=== PATIENT | female | born 1985 | race Caucasian/White ===

== ENCOUNTER 2017-02-22 17:37 | Emergency (ER) | payer OTHER ==
[~2017-02-22] VITALS: Ht 172.7 cm; Wt 143.7 kg
[2017-02-22 17:58] VITALS: TEMP 37; Ht 172.7 cm; Wt 143.7 kg
[2017-02-22] MEDS ORDERED: LEVO75TA PO (19:29)
--- NOTE | 2017-02-22 19:44 | EMERGENCY ROOM VISIT NOTE ---
History Report prepared by Rommel: Tlou Abrams Under the Supervision of: Dr. Ever Granado M.D. First contact with patient: 19:27 Chief Complaint: SWELLING TO EXTREMITY Stated Complaint: FEET ARE SWELLED AND RASHED- PHYSICIAN REFERRED History of Present Illness The patient is a 31 year old female who presents to the Emergency Room with complaints of persistent bilateral leg and feet swelling that started earlier today. She adds that there are red dots on her feet. The patient says that she was just sitting all day at [employer], but she was swimming in [place] yesterday. The patient says that she has been feeling very hot and nauseous all day, and when she walks around, it feels like water is "swooshing around" on her feet. The patient adds that for the past 3 days, she has been vomiting after eating. She says that she feels full and after she vomits, she feels fine. The patient denies any fevers, shortness of breath, worsening headaches, abdominal pain, or abnormal vaginal discharge or bleeding. The patient denies any chance of or any known tick bites. Source of History: patient Onset: Earlier today Position: leg (bilateral), foot (bilateral) Quality: other (swelling) Timing: other (persistent) Associated Symptoms: + nausea, + vomiting, No fevers, No headache (worsening ), No SOB, No abdominal pain Note: Associated symptoms: Red dots on feet. Hot. Feels like water "swooshing around" on feet. Denies abnormal vaginal discharge or bleeding. Review of Systems See HPI for pertinent positives & negatives. A total of 10 systems reviewed and were otherwise negative. Past Medical & Surgical Medical Problems: (1) Eye cancer (2) Migraine Surgical Problems: (1) History of tonsillectomy Old medical records were reviewed. Nurse's notes were reviewed and I agree with. Family History Diabetes mellitus FH: heart disease FHx: cancer FHx: gallbladder disease Hypertension Kidney disease Social History Smoking Status: Never Smoker Alcohol Use: occasionally Marital Status: Housing Status: lives with family Occupation Status: employed Current/Historical Medications Scheduled Levothyroxine Sodium (Synthroid), 75 MCG PO DAILY Allergies Coded Allergies: No Known Allergies (Unverified , 02/22/17) Physical Exam Vital Signs Date Time Temp Pulse Resp B/P (MAP) Pulse Ox O2 Delivery O2 Flow Rate FiO2 02/22/17 21:52 93 20 155/95 98 02/22/17 21:15 103 20 149/93 98 Room Air 02/22/17 17:58 37.0 103 18 156/91 100 Room Air Physical Exam General: Well developed well nourished non ill-appearing young female in no acute distress, breathing comfortably on room air. Normal speech HEENT: Prosthetic right eye and surgical changes. Left eye has normal movement. Oropharynx is pink with moist mucous membranes. No swelling of the mouth lips or tongue. Neck: Supple with a midline trachea. No meningeal signs or stiffness, no JVD or bruits. No Stridor. Chest: Clear to auscultation bilaterally. No wheezes or rhonchi. No increased work of breathing. Heart: regular rate and rhythm. Abdomen: Soft nontender, nondistended without rebound guarding or rigidity. Extremities: Mild redness and possible swelling of shins diffusely. No definite cellulitis or crepitus. Small petechial-looking rashes on feet only. There are only a few spots here and there. Spine/Back. Non tender to palpation. No CVA tenderness Skin: Good turgor without rashes signs a small rash on the feet. Neurologic exam: Cranial nerves two through 12 are intact. Motor and sensation are intact and symmetrical throughout. Medical Decision & Procedures ER Provider Diagnostic Interpretation: X-ray results as stated below per interpretation by me and the radiologist: CHEST ONE VIEW PORTABLE CLINICAL HISTORY: CHEST PAIN chest pain COMPARISON STUDY: No previous studies for comparison. FINDINGS: The bones soft tissues and hemidiaphragms are normal. The cardiomediastinal silhouette is normal. The lungs are clear. The pulmonary vasculature is normal. IMPRESSION: Negative chest. The above report was generated using voice recognition software. It may contain grammatical, syntax or spelling errors. Electronically signed by: James Martin M.D. 02/22/2017 8:40 PM Dictated Date/Time: 02/22/2017 8:39 PM Laboratory Results 02/22/17 20:15 Red Blood Count 4.48, Mean Corpuscular Volume 89.5, Mean Corpuscular Hemoglobin 29.7, Mean Corpuscular Hemoglobin Concent 33.2, Mean Platelet Volume 9.8, Neutrophils (%) (Auto) 54.9, Lymphocytes (%) (Auto) 35.5, Monocytes (%) (Auto) 6.6, Eosinophils (%) (Auto) 2.6, Basophils (%) (Auto) 0.2, Neutrophils # (Auto) 5.35, Lymphocytes # (Auto) 3.45, Monocytes # (Auto) 0.64, Eosinophils # (Auto) 0.25, Basophils # (Auto) 0.02 02/22/17 20:15 Test 02/22/17 20:15 02/22/17 21:10 White Blood Count 9.73 K/uL (4.8-10.8) Red Blood Count 4.48 M/uL (4.2-5.4) Hemoglobin 13.3 g/dL (12.0-16.0) Hematocrit 40.1 % (37-47) Mean Corpuscular Volume 89.5 fL (80-100) Mean Corpuscular Hemoglobin 29.7 pg (25-34) Mean Corpuscular Hemoglobin Concent 33.2 g/dl (32-36) Platelet Count 287 K/uL (130-400) Mean Platelet Volume 9.8 fL (7.4-10.4) Neutrophils (%) (Auto) 54.9 % Lymphocytes (%) (Auto) 35.5 % Monocytes (%) (Auto) 6.6 % Eosinophils (%) (Auto) 2.6 % Basophils (%) (Auto) 0.2 % Neutrophils # (Auto) 5.35 K/uL (1.4-6.5) Lymphocytes # (Auto) 3.45 K/uL (1.2-3.4) Monocytes # (Auto) 0.64 K/uL (0.11-0.59) Eosinophils # (Auto) 0.25 K/uL (0-0.5) Basophils # (Auto) 0.02 K/uL (0-0.2) RDW Standard Deviation 46.6 fL (36.4-46.3) RDW Coefficient of Variation 14.2 % (11.5-14.5) Immature Granulocyte % (Auto) 0.2 % Immature Granulocyte # (Auto) 0.02 K/uL (0.00-0.02) Anion Gap 7.0 mmol/L (3-11) Est Creatinine Clear Calc Drug Dose 163.1 ml/min Estimated GFR () 120.9 Estimated GFR (Non- 104.3 BUN/Creatinine Ratio 21.0 (10-20) Calcium Level 9.2 mg/dl (8.5-10.1) Total Bilirubin 0.2 mg/dl (0.2-1) Direct Bilirubin 0.1 mg/dl (0-0.2) Aspartate Amino Transf (AST/SGOT) 24 U/L (15-37) Alanine Aminotransferase (ALT/SGPT) 45 U/L (12-78) Alkaline Phosphatase 91 U/L (45-117) Total Creatine Kinase 105 U/L (26-192) Creatine Kinase MB 0.6 ng/ml (0.5-3.6) Creatine Kinase MB Ratio 0.6 (0-3.0) Troponin I < 0.015 ng/ml (0-0.045) Total Protein 6.9 gm/dl (6.4-8.2) Albumin 3.4 gm/dl (3.4-5.0) Lipase 243 U/L (73-393) Thyroid Stimulating Hormone (TSH) 1.870 uIu/ml (0.300-4.500) Human Chorionic Gonadotropin, Qual NEG (NEG) Lyme Disease IgG Antibody NEG (NEG) Lyme Disease IgM Antibody NEG (NEG) Urine Color YELLOW Urine Appearance CLEAR (CLEAR) Urine pH 5.0 (4.5-7.5) Urine Specific [place] 1.026 (1.000-1.030) Urine Protein NEG (NEG) Urine Glucose (UA) NEG (NEG) Urine Ketones NEG (NEG) Urine Occult Blood NEG (NEG) Urine Nitrite NEG (NEG) Urine Bilirubin NEG (NEG) Urine Urobilinogen NEG (NEG) Urine Leukocyte Esterase NEG (NEG) Laboratory studies as stated above per my review. ECG Indication: vomiting Rate (beats per minute): 97 Rhythm: normal sinus Findings: no acute ischemic change, no ectopy Comparison ECG Date: no prior available ED Course 1930: Past medical records reviewed. The patient was evaluated in room B10, and a complete history and physical examination were performed. 2033: I reevaluated the patient and she is resting comfortably. 2114: I reevaluated the patient and she is resting comfortably. 2141: Upon reevaluation, the patient is resting comfortably. I discussed the results and treatment plan with her. She verbalized agreement of the treatment plan. The patient was discharged home. Medical Decision Differentials include but are not limited to: hematologic abnormality, infection , trauma, electrolyte or metabolic abnormality. This patient comes in as described above. She was placed in room B 10. She has been having swelling of her legs. She was out in the sun on the leg. She has diffuse small spots of a rash on her feet only which could be a TIA however she has none anywhere else on her body .she is nontoxic and afebrile. Multiple blood testing was obtained. She has no white count or fever to suggest infection. She has no acute electrolyte or metabolic abnormalities. She has normal platelet function. She has normal cardiac workup. She feels good and would like to go home. I think this most likely may be more mechanical issue from being outside. There is no evidence of any cardiac, renal, or other pathology however I told her to keep her legs elevated follow-up with her regular doctor. Return if: fever, increasing pain or swelling, worsening of symptoms, any new problems or concerns. She says she feels a lot better than she did yesterday as well. She is happy the plan and discharged to home. Medication Reconcilliation Current Medication List: was personally reviewed by me Blood Pressure Screening Patient's blood pressure: Elevated blood pressure Blood pressure disposition: Elevated BP felt to be situational Impression Primary Impression: Lower extremity edema Additional Impression: Rash Scribe Attestation The scribe's documentation has been prepared under my direction and personally reviewed by me in its entirety. I confirm that the note above accurately reflects all work, treatment, procedures, and medical decision making performed by me. Departure Information Dispostion Home / Self-Care Referrals Momo Calvo PA-C (PCP) Patient Instructions My [facility] Additional Instructions Rest. Elevate your legs Return if: Increasing pain or swelling, fever or chills, chest pain, worsening symptoms, any new problems or concerns Follow-up with your doctor in the next couple days for recheck Problem Qualifiers
[2017-02-22 20:33] LABS: BASO % 0.2 %; BASO ABS # 0.02 K/uL (0-0.2); COMPLETE YES; EOS % 2.6 %; HEMATOCRIT 40.1 % (37-47); IG% 0.2 %; LYMPH % 35.5 %; LYMPH ABS # 3.45 K/uL (1.2-3.4); MEAN CELL VOLUME 89.5 fL (80-100); MEAN CORPUSCULAR HEMOGLOBIN 29.7 pg (25-34); MEAN CORPUSCULAR HGB CONC 33.2 g/dl (32-36); MEAN PLATELET VOLUME 9.8 fL (7.4-10.4); MONO % 6.6 %; NEUT % 54.9 %; PLATELET COUNT 287 K/uL (130-400); RED BLOOD COUNT 4.48 M/uL (4.2-5.4); WHITE BLOOD COUNT 9.73 K/uL (4.8-10.8)
--- NOTE | 2017-02-22 20:41 | DIAGNOSTIC IMAGING REPORT ---
CHEST ONE VIEW PORTABLE CLINICAL HISTORY: CHEST PAIN chest pain COMPARISON STUDY: No previous studies for comparison. FINDINGS: The bones soft tissues and hemidiaphragms are normal. The cardiomediastinal silhouette is normal. The lungs are clear. The pulmonary vasculature is normal. IMPRESSION: Negative chest. The above report was generated using voice recognition software. It may contain grammatical, syntax or spelling errors. Electronically signed by: James Martin M.D. 02/22/2017 8:40 PM Dictated Date/Time: 02/22/2017 8:39 PM
[2017-02-22 20:43] LABS: ALT/SGPT 45 U/L (12-78); BLOOD UREA NITROGEN 16 mg/dl (7-18); CALCIUM 9.2 mg/dl (8.5-10.1); CARBON DIOXIDE 25 mmol/L (21-32); CHLORIDE 111 mmol/L (98-107); CREATININE 0.77 mg/dl (0.60-1.20); GLUCOSE 122 mg/dl (70-99); POTASSIUM 3.8 mmol/L (3.5-5.1); SODIUM 143 mmol/L (136-145)
[2017-02-22 20:54] LABS: ALKALINE PHOSPHATASE 91 U/L (45-117); AST/SGOT 24 U/L (15-37); CKMB/CK RATIO 0.6 (0-3.0)
[2017-02-22 21:17] LABS: PREG INTERNAL NEGATIVE QC NEG CLEAR BACKGROUND; PREG INTERNAL POSITIVE QC POS CONTROL LINE
[2017-02-22 21:29] LABS: URINE APPEARANCE CLEAR (CLEAR); URINE BILIRUBIN NEG (NEG); URINE COLOR YELLOW; URINE NITRITE NEG (NEG); URINE SPECIFIC GRAVITY 1.026 (1.000-1.030); UROBILINOGEN NEG (NEG)
[2017-02-22 21:42] LABS: MANUAL MICROSCOPIC REQUIRED? NO; REVIEW REQ? NO
[2017-02-22 21:46] LABS: LYME DISEASE AB IGG NEG (NEG); LYME DISEASE AB IGM NEG (NEG)
[2017-02-22 21:52] VITALS: BP 155/95; PULSE 93; O2SAT 98
== END 2017-02-22 21:50 | disposition home or self-care (01) ==
LOC: MERGE 17:42 → C.EDB 17:42
DX: R60.0 Localized edema (principal); R21 Rash and other nonspecific skin eruption; Z85.840 Personal history of malignant neoplasm of eye; G43.909 Migraine, unspecified, not intractable, without status migrainosus; Z83.3 Family history of diabetes mellitus; Z82.49 Family history of ischemic heart disease and other diseases of the circulatory system; Z80.9 Family history of malignant neoplasm, unspecified; Z83.79 Family history of other diseases of the digestive system; Z84.1 Family history of disorders of kidney and ureter; Z79.899 Other long term (current) drug therapy

== ENCOUNTER 2017-08-24 10:17 | Emergency (ER) | payer OTHER ==
[~2017-08-24 10:17] MED LIST: LEVO75TA PO
[2017-08-24 10:41] VITALS: TEMP 36.9; Ht 170.2 cm
[2017-08-24 11:14] VITALS: O2SAT 100
[2017-08-24] MEDS ORDERED: CHOL1TAB46 PO (11:29)
[2017-08-24] MEDS ORDERED: GLC/500 PO (11:29)
[2017-08-24] MEDS ORDERED: DULA1INJ INJ (11:29)
[2017-08-24] MEDS ORDERED: LEVO88TA3 PO (11:29)
[2017-08-24] MEDS ORDERED: CYNI1000 INJ (11:29)
--- NOTE | 2017-08-24 12:02 | EMERGENCY ROOM VISIT NOTE ---
History Report prepared by Rommel: Tolu Abrams Under the Supervision of: Dr. Nba Tran M.D. First contact with patient: 11:10 Chief Complaint: SYNCOPE Stated Complaint: DIZZINESS, PASSED OUT MULTIPLE TIMES History of Present Illness The patient is a 32 year old white female with a past medical history of migraines, PCOS, thyroid disorder, retinoblastoma, right eye removal who presents to the ED with a cc of syncopal episodes beginning this week. Positive headache, loss of consciousness, lightheadedness, nausea, heart racing, feeling hot. Negative abdominal pain, chest pain, shaking, tongue biting, incontinence, bowel movement changes. She notes that she is chronically lightheaded with standing, but when going from sitting to standing this morning, she passed out. The patient states that she passed out last night when going from sitting to standing as well. The patient notes that she has no history of seizures. She adds that she was recently started on Trulicity for prediabetes. She has been on Metformin for a while and is still on it. Source of History: patient Onset: This week Position: other (global) Symptom Intensity: 2 times Quality: other (syncope) Timing: other (episodes) Associated Symptoms: + LOC, + headache, + nausea, No chest pain, No abdominal pain, No urinary symptoms (denies incontinence) Note: Positive lightheadedness, feeling hot, heart racing. Negative tongue bite, shaking. Review of Systems See HPI for pertinent positives and negatives. A total of ten systems were reviewed and were otherwise negative. Past Medical & Surgical Medical Problems: (1) Eye cancer (2) Migraine Surgical Problems: (1) History of tonsillectomy Family History Diabetes mellitus FH: heart disease FHx: cancer FHx: gallbladder disease Hypertension Kidney disease Social History Smoking Status: Never Smoker Alcohol Use: occasionally Marital Status: Housing Status: lives with family Occupation Status: employed Current/Historical Medications Scheduled Cholecalciferol (Vitamin D3), 5,000 UNITS PO DAILY Cyanocobalamin (Cyanocobalamin), 1 DOSE INJ WK Dulaglutide (Trulicity), 1 DOSE INJ WK Levothyroxine Sodium (Levothyroxine Sodium), 88 MCG PO DAILY Metformin Hcl (Glucophage), 500 MG PO DAILY Allergies Coded Allergies: No Known Allergies (Unverified , 08/24/17) Physical Exam Vital Signs Date Time Temp Pulse Resp B/P (MAP) Pulse Ox O2 Delivery O2 Flow Rate FiO2 08/24/17 12:46 91 24 129/78 99 Room Air 08/24/17 12:32 104 08/24/17 11:14 89 20 125/93 100 Room Air 95 141/96 107 142/91 08/24/17 11:14 100 Room Air 08/24/17 11:14 89 20 141/96 100 Room Air 08/24/17 10:41 36.9 87 18 137/90 98 Room Air Physical Exam GENERAL: Awake, alert, well-appearing, NAD HENT: Normocephalic, atraumatic. EYES: Prosthetic right eye. Gross vision intact, right prosthetic eye more sunken but chronic. NECK: Supple. No nuchal rigidity. FROM. RESPIRATORY: CTAB, no rhonchi, wheezing, crackles CARDIAC: RRR, no MRG ABDOMEN: Obese, soft, NTND, BS+ MSK: No chest wall TTP, no LE edema NEURO: CN 2-12 intact, 5/5 upper and lower extremity strength, no dysmetria, no drift, good finger to nose, no sensory deficits. SKIN: No rash or jaundice noted. Medical Decision & Procedures ER Provider Diagnostic Interpretation: Radiology results as stated below per my review and radiologist interpretation: HEAD WITHOUT CONTRAST (CT) CT DOSE: 669.45 mGycm HISTORY: Mental status change EVALUATE ALTERED MENTAL STATUS/WEAKNESS TECHNIQUE: Multiaxial CT images of the head were performed without the use of intravenous contrast. A dose lowering technique was utilized adhering to the principles of ALARA. Comparison: None. Findings: Findings suggesting old posttraumatic change to the right facial and right orbital region. The right globe is atrophy compared to the left. There has been operative screw fixation of the right zygomatic arch. Mastoid air cells are considered clear. The calvarium and skull base are intact. The ventricles and sulci are within normal limits. There is no mass, hematoma, midline shift, or acute infarct. Transaxial image 12 suggests a small focus of increased density in the right paraventricular region. This is felt to represent developing calcification of the basal ganglia. There is no midline shift. Impression: No acute intracranial abnormality. Findings consistent with postoperative and old posttraumatic changes to the right facial region, right orbital region, as well as left parietal calvarial convexity. The above report was generated using voice recognition software. It may contain grammatical, syntax or spelling errors. Electronically signed by: James Martin M.D. 08/24/2017 12:28 PM Dictated Date/Time: 08/24/2017 12:23 PM CHEST ONE VIEW PORTABLE CLINICAL HISTORY: EVALUATE ALTERED MENTAL STATUS/WEAKNESS dyspnea COMPARISON STUDY: 02/22/2017 FINDINGS: The bones soft tissues and hemidiaphragms are normal. The cardiomediastinal silhouette is normal. The lungs are clear. The pulmonary vasculature is normal. IMPRESSION: Negative chest. The above report was generated using voice recognition software. It may contain grammatical, syntax or spelling errors. Electronically signed by: James Martin M.D. 08/24/2017 12:37 PM Dictated Date/Time: 08/24/2017 12:36 PM Laboratory Results 08/24/17 11:10 Red Blood Count 4.86, Mean Corpuscular Volume 88.3, Mean Corpuscular Hemoglobin 29.8, Mean Corpuscular Hemoglobin Concent 33.8, Mean Platelet Volume 9.8, Neutrophils (%) (Auto) 60.5, Lymphocytes (%) (Auto) 30.4, Monocytes (%) (Auto) 7.0, Eosinophils (%) (Auto) 1.7, Basophils (%) (Auto) 0.1, Neutrophils # (Auto) 4.39, Lymphocytes # (Auto) 2.21, Monocytes # (Auto) 0.51, Eosinophils # (Auto) 0.12, Basophils # (Auto) 0.01 08/24/17 11:10 Test 08/24/17 11:10 08/24/17 12:14 White Blood Count 7.26 K/uL (4.8-10.8) Red Blood Count 4.86 M/uL (4.2-5.4) Hemoglobin 14.5 g/dL (12.0-16.0) Hematocrit 42.9 % (37-47) Mean Corpuscular Volume 88.3 fL (80-100) Mean Corpuscular Hemoglobin 29.8 pg (25-34) Mean Corpuscular Hemoglobin Concent 33.8 g/dl (32-36) Platelet Count 309 K/uL (130-400) Mean Platelet Volume 9.8 fL (7.4-10.4) Neutrophils (%) (Auto) 60.5 % Lymphocytes (%) (Auto) 30.4 % Monocytes (%) (Auto) 7.0 % Eosinophils (%) (Auto) 1.7 % Basophils (%) (Auto) 0.1 % Neutrophils # (Auto) 4.39 K/uL (1.4-6.5) Lymphocytes # (Auto) 2.21 K/uL (1.2-3.4) Monocytes # (Auto) 0.51 K/uL (0.11-0.59) Eosinophils # (Auto) 0.12 K/uL (0-0.5) Basophils # (Auto) 0.01 K/uL (0-0.2) RDW Standard Deviation 46.6 fL (36.4-46.3) RDW Coefficient of Variation 14.3 % (11.5-14.5) Immature Granulocyte % (Auto) 0.3 % Immature Granulocyte # (Auto) 0.02 K/uL (0.00-0.02) Prothrombin Time 9.9 SECONDS (9.0-12.0) Prothromb Time International Ratio 0.9 (0.9-1.1) Activated Partial Thromboplast Time 27.3 SECONDS (21.0-31.0) Partial Thromboplastin Ratio 1.1 Anion Gap 6.0 mmol/L (3-11) Estimated GFR () 114.7 Estimated GFR (Non- 98.9 BUN/Creatinine Ratio 15.7 (10-20) Calcium Level 8.9 mg/dl (8.5-10.1) Phosphorus Level 3.3 mg/dl (2.5-4.9) Magnesium Level 2.3 mg/dl (1.8-2.4) Total Bilirubin 0.4 mg/dl (0.2-1) Direct Bilirubin 0.1 mg/dl (0-0.2) Aspartate Amino Transf (AST/SGOT) 22 U/L (15-37) Alanine Aminotransferase (ALT/SGPT) 51 U/L (12-78) Alkaline Phosphatase 98 U/L (45-117) Troponin I < 0.015 ng/ml (0-0.045) Total Protein 7.7 gm/dl (6.4-8.2) Albumin 3.7 gm/dl (3.4-5.0) Thyroid Stimulating Hormone (TSH) 1.710 uIu/ml (0.300-4.500) Urine Color YELLOW Urine Appearance CLEAR (CLEAR) Urine pH 6.0 (4.5-7.5) Urine Specific [place] 1.016 (1.000-1.030) Urine Protein NEG (NEG) Urine Glucose (UA) NEG (NEG) Urine Ketones NEG (NEG) Urine Occult Blood NEG (NEG) Urine Nitrite NEG (NEG) Urine Bilirubin NEG (NEG) Urine Urobilinogen NEG (NEG) Urine Leukocyte Esterase NEG (NEG) Laboratory results reviewed by me Medications Administered Medications (Trade) Dose Ordered Sig/[place]ls[place] Route Start Time Stop Time Status Last Admin Dose Admin Sodium Chloride 1,000 ml @ 999 mls/hr Q1H1M STAT IV 08/24/17 12:05 08/24/17 13:05 DC 08/24/17 12:45 999 MLS/HR Metoclopramide HCl (Reglan Inj) 10 mg NOW STAT IV. 08/24/17 12:05 08/24/17 12:07 DC 08/24/17 12:46 10 MG Diphenhydramine HCl (Benadryl Inj) 25 mg NOW STAT IV 08/24/17 12:05 08/24/17 12:07 DC 08/24/17 12:46 25 MG ECG Per My Interpretation Indication: syncope Rate (beats per minute): 96 Rhythm: normal sinus Findings: T-wave inversion (single in lead 3), other (normal intervals, normal axis, no other sts changes or twi) ED Course 1155: The patient was evaluated in room A10. A complete history and physical exam was performed. 1317: I reevaluated the patient and she is resting comfortably. Discussed results and discharge instructions: she verbalized understanding and agreement. The patient is ready for discharge. Medical Decision The patient is a 32 year old white female with a past medical history of migraines, PCOS, thyroid disorder, retinoblastoma, right eye removal who presents to the ED with a cc of syncopal episodes beginning this week. Positive headache, loss of consciousness, lightheadedness, nausea, heart racing, feeling hot. Negative abdominal pain, chest pain, shaking, tongue biting, incontinence, bowel movement changes. Differential diagnosis: Etiologies such as vasovagal event, infection, hypoglycemia, electrolyte abnormalities, cardiac sources, intracerebral event, toxicologic, neurologic, as well as others were entertained. Patient was seen and evaluated the bedside. Patient had complained of a syncopal episode which occurred twice in the last week. Most recently this morning as well as last evening. Patient states these occurred with some lightheadedness, and palpitations. Patient denied any tongue biting or incontinence. They were witnessed episodes. They were after changing positions. The patient denies any fevers, chills, chest pains, shortness of breath. Patient does have a prior history of PCO S as well as retinoblastoma of the eye. Patient's eye cancer was resolved after she had it removed. The patient was recently started on Trulicity. No other changes medications. Patient exam is very well-appearing. Patient has a nonfocal neurologic exam with the exception of having an absent right eye. Patient did have a CT of the brain that was negative acute. The patient's blood work was fairly unremarkable. Sugar was normal. Patient's urinalysis was also negative. Patient was told that she is to follow with her PCP. I believe that it is suitable for her to stop the Trulicity as she states that this only began happening when she started taking it. Patient was also advised to continue hydrating well with liberal amounts of clear fluids. 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 Patient was deemed suitable for outpatient follow-up and treatment at this time. Patient was given strict follow-up, discharge, and return precautions. All questions were answered. Patient was deemed suitable for outpatient follow-up at this time. Patient agreed with the plan of care and was safely discharged home. Medication Reconcilliation Current Medication List: was personally reviewed by me Blood Pressure Screening Patient's blood pressure: Elevated blood pressure Blood pressure disposition: Elevated BP felt to be situational Impression Primary Impression: Syncope Scribe Attestation The scribe's documentation has been prepared under my direction and personally reviewed by me in its entirety. I confirm that the note above accurately reflects all work, treatment, procedures, and medical decision making performed by me. Departure Information Dispostion Home / Self-Care Referrals Momo Calvo PA-C (PCP) Patient Instructions Fainting (Syncope) - [facility], My [facility], Syncope Additional Instructions Please return to the emergency department if you have worsening or recurrent symptoms not amenable to at-home treatment. Please call for a follow-up appointment with her primary care physician. Please take your medications as prescribed. If you have other concerns and/or complaints please feel free to also call your primary care physician's office or return the ED for further evaluation, management, and treatment. You may take 600 mg Ibuprofen every 6 hours as needed for pain with food for no more than 2 consecutive days. You may take tylenol 1000 mg every 6 hours as needed for pain. You may take motrin and tylenol separately or at the same time. Take your medications as prescribed. If taking an antibiotic consider taking a probiotic and/or eating yogurt, but at the least, please take with food as it can cause upset stomach. Your blood sugar was 86 today. You had no glucose in your urine. 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 You have been examined and treated today on an emergency basis only. This is not a substitute for, or an effort to provide, complete comprehensive medical care. It is impossible to recognize and treat all injuries or illnesses in a single emergency department visit. It is therefore important that you follow up closely with [facility], your PCP, and/or your specialist(s). Call as soon as possible for an appointment. Thank you for your time and consideration. I look forward to speaking with you again soon. Please don't hesitate to call us if you have any questions. Problem Qualifiers Primary Impression: Syncope Syncope type: unspecified Qualified Codes: R55 - Syncope and collapse
[2017-08-24] MEDS ORDERED: DiphenhydrAMINE HCL 50 MG/ML VIAL IV STA (12:05)
[2017-08-24] MEDS ORDERED: SODIUM CHLORIDE 0.9% 1000ML 1,000 ML IV STA (12:05)
[2017-08-24] MEDS ORDERED: METOCLOPRAMIDE HCL INJ 5 MG/ML 2 ML VIAL IV. STA (12:05)
[2017-08-24 12:17] LABS: BASO % 0.1 %; BASO ABS # 0.01 K/uL (0-0.2); EOS % 1.7 %; EOS ABS # 0.12 K/uL (0-0.5); HEMATOCRIT 42.9 % (37-47); HEMOGLOBIN 14.5 g/dL (12.0-16.0); IG# 0.02 K/uL (0.00-0.02); LYMPH % 30.4 %; LYMPH ABS # 2.21 K/uL (1.2-3.4); MEAN CELL VOLUME 88.3 fL (80-100); MEAN CORPUSCULAR HEMOGLOBIN 29.8 pg (25-34); MEAN CORPUSCULAR HGB CONC 33.8 g/dl (32-36); MEAN PLATELET VOLUME 9.8 fL (7.4-10.4); MONO ABS # 0.51 K/uL (0.11-0.59); NEUT % 60.5 %; NEUT ABS # 4.39 K/uL (1.4-6.5); PLATELET COUNT 309 K/uL (130-400); RED CELL DISTRIBUTION WIDTH CV 14.3 % (11.5-14.5); RED CELL DISTRIBUTION WIDTH SD 46.6 fL (36.4-46.3); WHITE BLOOD COUNT 7.26 K/uL (4.8-10.8)
[2017-08-24 12:25] LABS: ALBUMIN 3.7 gm/dl (3.4-5.0); ALT/SGPT 51 U/L (12-78); BLOOD UREA NITROGEN 13 mg/dl (7-18); CALCIUM 8.9 mg/dl (8.5-10.1); CARBON DIOXIDE 27 mmol/L (21-32); GLUCOSE 84 mg/dl (70-99); INR 0.9 (0.9-1.1); POTASSIUM 3.9 mmol/L (3.5-5.1); PTT PATIENT 27.3 SECONDS (21.0-31.0); SODIUM 140 mmol/L (136-145)
--- NOTE | 2017-08-24 12:29 | DIAGNOSTIC IMAGING REPORT ---
HEAD WITHOUT CONTRAST (CT) CT DOSE: 669.45 mGycm HISTORY: Mental status change EVALUATE ALTERED MENTAL STATUS/WEAKNESS TECHNIQUE: Multiaxial CT images of the head were performed without the use of intravenous contrast. A dose lowering technique was utilized adhering to the principles of ALARA. Comparison: None. Findings: Findings suggesting old posttraumatic change to the right facial and right orbital region. The right globe is atrophy compared to the left. There has been operative screw fixation of the right zygomatic arch. Mastoid air cells are considered clear. The calvarium and skull base are intact. The ventricles and sulci are within normal limits. There is no mass, hematoma, midline shift, or acute infarct. Transaxial image 12 suggests a small focus of increased density in the right paraventricular region. This is felt to represent developing calcification of the basal ganglia. There is no midline shift. Impression: No acute intracranial abnormality. Findings consistent with postoperative and old posttraumatic changes to the right facial region, right orbital region, as well as left parietal calvarial convexity. The above report was generated using voice recognition software. It may contain grammatical, syntax or spelling errors. Electronically signed by: James Martin M.D. 08/24/2017 12:28 PM Dictated Date/Time: 08/24/2017 12:23 PM
[2017-08-24 12:36] LABS: ALKALINE PHOSPHATASE 98 U/L (45-117); AST/SGOT 22 U/L (15-37); PHOSPHORUS 3.3 mg/dl (2.5-4.9); TOTAL PROTEIN 7.7 gm/dl (6.4-8.2)
--- NOTE | 2017-08-24 12:38 | DIAGNOSTIC IMAGING REPORT ---
CHEST ONE VIEW PORTABLE CLINICAL HISTORY: EVALUATE ALTERED MENTAL STATUS/WEAKNESS dyspnea COMPARISON STUDY: 02/22/2017 FINDINGS: The bones soft tissues and hemidiaphragms are normal. The cardiomediastinal silhouette is normal. The lungs are clear. The pulmonary vasculature is normal. IMPRESSION: Negative chest. The above report was generated using voice recognition software. It may contain grammatical, syntax or spelling errors. Electronically signed by: James Martin M.D. 08/24/2017 12:37 PM Dictated Date/Time: 08/24/2017 12:36 PM
[2017-08-24 14:24] VITALS: BP 146/76; PULSE 20; O2SAT 99
== END 2017-08-24 14:24 | disposition home or self-care (01) ==
LOC: C.EDB 10:19 → C.EDA 14:24
DX: R55 Syncope and collapse (principal); G43.909 Migraine, unspecified, not intractable, without status migrainosus; E07.9 Disorder of thyroid, unspecified; Z85.840 Personal history of malignant neoplasm of eye; E28.2 Polycystic ovarian syndrome; Z83.3 Family history of diabetes mellitus; Z82.49 Family history of ischemic heart disease and other diseases of the circulatory system; Z80.9 Family history of malignant neoplasm, unspecified; Z83.79 Family history of other diseases of the digestive system; Z84.1 Family history of disorders of kidney and ureter; Z79.899 Other long term (current) drug therapy

== ENCOUNTER 2018-09-24 19:10 | Observation (INO) ==
[2018-09-24] MEDS ORDERED: GI COCKTAIL ED USE PO ONE (20:02)
[2018-09-24] MEDS ORDERED: SUCRALFATE 1 GM TAB PO STA (20:02)
[2018-09-24] MEDS ORDERED: FAMOTIDINE 20 MG TAB PO ONE (20:02)
[2018-09-24 20:27] LABS: Basophils # (auto) 0.01 K/uL (0-0.2); Basophils % (auto) 0.1 %; Eosinophils # (auto) 0.06 K/uL (0-0.5); Eosinophils % (auto) 0.7 %; Hematocrit (blood only) 39.3 % (37-47); Hemoglobin 13.2 g/dL (12.0-16.0); Immature Granulocytes # (auto) 0.02 K/uL (0.00-0.02); Immature Granulocytes % (auto) 0.2 %; Lymphocytes # (auto) 2.47 K/uL (1.2-3.4); Lymphocytes % (auto) 29.5 %; Mean Corpuscular Hgb Conc 33.6 g/dL (32-36); Mean Corpuscular Volume 88.1 fL (80-100); Mean Platelet Volume 9.4 fL (7.4-10.4); Monocytes # (auto) 0.62 K/uL (0.11-0.59); Monocytes % (auto) 7.4 %; Neutrophils # (auto) 5.18 K/uL (1.4-6.5); Neutrophils % (auto) 62.1 %; Platelet Count 311 K/uL (130-400); RDW Coefficient of Variation 13.8 % (11.5-14.5); RDW Standard Deviation 44.9 fL (36.4-46.3); Red Blood Count 4.46 M/uL (4.2-5.4); White Blood Count 8.36 K/uL (4.8-10.8)
--- NOTE | 2018-09-24 20:39 | XRay Report ---
XR chest 1V portable CLINICAL HISTORY: 33 years-old Female presenting with Chest Pain, heartburn for one week not improvin g. TECHNIQUE: Portable upright AP view of the chest was obtained. COMPARISON: 08/24/2017. FINDINGS: Cardiomediastinal silhouette normal. No focal opacity. No large effusion or pneumothorax. Osseous str uctures normal. Upper abdomen normal. IMPRESSION: 1. No acute cardiopulmonary disease. Electronically signed by: Reji Ziegler M.D. 09/24/2018 8:38 PM
[2018-09-24 20:49] LABS: iSTAT Creatinine 0.8 mg/dl (0.6-1.3); iSTAT Hemoglobin 13.6 g/dl (12.0-16.0); iSTAT Ionized Calcium 1.13 mmol/l (1.12-1.32); iSTAT Potassium 3.9 mEq/L (3.3-5.0)
[2018-09-24 20:49] LABS: Alanine Aminotransferase 35 U/L (12-78); Albumin Level 3.6 gm/dl (3.4-5.0); Aspartate Aminotransferase 26 U/L (15-37); BUN Creatinine Ratio 19.4 (10-20); Blood Urea Nitrogen 17 mg/dl (7-18); Carbon Dioxide 25 mmol/L (21-32); Chloride 105 mmol/L (98-107); Creatinine Clr Calc Pharmacy 145.5 ml/min; Est GFR (African American) 100.1; Est GFR (Non-African American) 86.4; Glucose 122 mg/dl (70-99); Potassium 3.8 mmol/L (3.5-5.1); Sodium 139 mmol/L (136-145)
[2018-09-24 20:54] LABS: Albumin Globulin Ratio 0.9 (0.9-2); Alkaline Phosphatase 70 U/L (45-117); Bilirubin,Total 0.4 mg/dl (0.2-1); Creatine Kinase 130 U/L (26-192); Creatine Kinase MB < 1.0 ng/ml (0.5-3.6); Globulin 3.9 gm/dl (2.5-4.0); Total Protein 7.5 gm/dl (6.4-8.2); Troponin I < 0.015 ng/ml (0-0.045)
[2018-09-24] MEDS ORDERED: OPTIRAY 320 125ml IV PRN (21:07)
--- NOTE | 2018-09-24 21:17 | CT Scan Report ---
CT angio chest PE protocol CLINICAL HISTORY: 33 years-old Female presenting with atypical chest pain, clinical concern for pulmo nary embolus. TECHNIQUE: Multidetector CT angiography of the chest was performed after administration of intravenou s contrast. 3-D volumetric and/or maximum intensity projection (MIP) images were subsequently reconst ructed for review. IV contrast: None. One or more dose lowering techniques were used consistent with the principles of ALARA (as low as reasonably achievable), including automatic exposure control, mA o r kV adjustment to individual patient size, and/or use of iterative reconstruction. COMPARISON: None. CT DOSE (mGy.cm): The estimated cumulative dose is 575.82 mGy.cm. FINDINGS: Veterinary Assistant Technician topogram: Unremarkable. Pulmonary vasculature: The study is suboptimal for the assessment of the pulmonary vascular tree secondary to respiratory mo tion artifact. No filling defect within the pulmonary arteries to suggest embolus. Main pulmonary art robin is not enlarged. No flattening of the interventricular septum. No intracardiac filling defect. No reflux of contrast into the hepatic veins. Remaining chest: Soft tissues: Normal thyroid and thoracic inlet. No axillary, supraclavicular, mediastinal, or hilar lymphadenopathy. Normal aorta. Normal heart size. No pericardial or pleural effusion. Significantly t hickened esophagus throughout its entire length with esophageal fat infiltration. Lungs and airways: No pneumothorax. Central airways patent. Pulmonary arteries are not significantly enlarged relative to adjacent bronchi. No interlobular septal thickening. No focal infiltrate or nodu le. Musculoskeletal: Normal osseous structures. IMPRESSION: 1. No evidence of pulmonary embolus. 2. Diffuse esophageal wall thickening with paraseptal fat infiltration. Findings suggest severe esop hagitis. Gastroenterology consultation recommended. No evidence of perforation at this time. 3. No other evidence of acute intrathoracic pathology. Electronically signed by: Reji Ziegler M.D. 09/24/2018 9:15 PM
[2018-09-24] MEDS ORDERED: ONDANSETRON INJ 2 MG/ML 2 ML VIAL IV STA (21:40)
[2018-09-24] MEDS ORDERED: PANTOprazole 80 MG in DEXTROSE 5% 100 ML IV ONE (21:40)
[2018-09-24] MEDS ORDERED: HYDROmorphone INJ 1 MG/ML SYRINGE IV STA (21:40)
[2018-09-24] MEDS ORDERED: PANTOPRAZOLE BOLUS/DRIP 1 EA IV STA (21:40)
[2018-09-24] MEDS: PANTOprazole 40 MG in DEXTROSE 5% 100 ML IV SCH (22:17)
--- NOTE | 2018-09-24 22:39 | History & Physical Report ---
Date of Service September 24, 2018 Assessment & Plan (1) Epigastric abdominal pain: CTA CHEST SHOWS SEVERE ESOPHAGITIS EGD DONE IN JUL SHOWED GRADE 1 ESOPHAGITIS ER TALKED TO [facility] AND WAS RECOMMENDED PPI BID AND CARAFATE CURRENTLY ON PPI DRIP, CARAFATE, GENTLE FLUIDS, CLEARS GI CONSULT Present on Admission?: Yes (2) Morbid obesity: PLAN FOR GASTRIC BYPASS Present on Admission?: Yes (3) Chest pain: MOSTLY FROM ESOPHAGITIS WILL MONITOR Present on Admission?: Yes History of Present Illness Chief Complaint: SEVERE EPIGASTRIC/CHEST PAIN AND SOB Primary Care Provider: Momo Calvo 33F Morbid obesity and plan for gastric bypass at [facility] coming Tuesday and on liquid diet since about 10days until surgery comes with severe ep igastric/chest pain radiating to back and associated with sob. No cough, no fever/chills. Has some nausea. No headaches or blurred vision. 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 ER called GI show operations supervisor and advised for either observation or transfer to [facility]. ER called [facility] but was advised for Protonix bid and Carafate.Received pain meds and feeling better. Allergies Allergy/AdvReac Type Severity Reaction Status Date / Time No Known Allergies Allergy Verified 09/24/18 20:10 Home Medications Home Medications Medication Instructions Recorded Confirmed Type cholecalciferol (vitamin D3) 50,000 units PO WK 09/24/18 09/24/18 History cyanocobalamin (vitamin B-12) 1,000 mcg IM WK 09/24/18 09/24/18 History norelgestromin-ethin.estradiol 1 patch TOPICAL DIRECTED 09/24/18 09/24/18 History [Xufinesse] Past Med/Surg History Medical History Epigastric abdominal pain Morbid obesity Migraine (Chronic) Surgical History H/O colonoscopy Hx of esophagogastroduodenoscopy Hx of tonsillectomy Family History Father Cancer Mother Diabetes Deep vein thrombosis Obesity Social History Preferred Language: Kinyarwanda Communication Ability: Effective Beliefs That Will Affect Care: None Current Living Situation: Family Feels Safe at Home: Yes Safety Concerns: Feels Safe At This Time Smoking Status: Never smoker Hx Alcohol Use: No Hx Substance Use: No Immunizations: influenza vaccine 04/03/2018 Review of Systems Constitutional- no fever Eyes- no acute visual changes ENT- no sinus drainage; no pharyngitis Pulmonary- no cough, no wheezing, no shortness of breath Cardiac- no chest pain, no dependent edema GI- has nausea, no vomiting, no diarrhea, no melena, no hematochezia - no dysuria, no hematuria Derm- no rashes Neuro- no headaches, no focal neurologic symptoms Physical Exam Vital Signs (Past 24 Hours): Last Vital Signs Temp 36.8 C 09/24/18 19:24 Pulse 88 09/24/18 21:52 Resp 16 09/24/18 21:52 BP 172/98 H 09/24/18 21:52 Pulse Ox 97 09/24/18 21:52 Physical Exam: NEEDS EDITING General- morbidly obese. not in distress Head- atraumatic Eyes- PERRL, EOMI, anicteric ENT- oropharynx clear Neck- supple, no JVD, no adenopathy, carotids +2/2, no bruits appreciated Lungs- clear to auscultation and percussion Heart- regular rhythm; no murmur, no gallop, no rub appreciated Abdomen- normal bowel sounds, soft, mild epigastric tenderness, no masses Extremities- no pretibial edema, no erythema Neuro- alert, oriented x 3; PERRL, EOMI; non focal Skin- warm & dry Results & Data Laboratory Results Laboratory Results - last 24 hr 09/24/18 09/24/18 09/24/18 20:02 20:02 20:22 WBC 8.36 RBC 4.46 Hgb 13.2 POC Hgb 13.6 Hct 39.3 POC Hct 40 MCV 88.1 MCH 29.6 MCHC 33.6 RDW Std Deviation 44.9 RDW Coeff of Rom 13.8 Plt Count 311 MPV 9.4 Immature Gran % (Auto) 0.2 Neut % (Auto) 62.1 Lymph % (Auto) 29.5 Hunt % (Auto) 7.4 Eos % (Auto) 0.7 Baso % (Auto) 0.1 Immature Gran # (Auto) 0.02 Neut # (Auto) 5.18 Lymph # (Auto) 2.47 Hunt # (Auto) 0.62 H Eos # (Auto) 0.06 Baso # (Auto) 0.01 POC D-Dimer POC Sodium 139 Sodium 139 POC Potassium 3.9 Potassium 3.8 POC Chloride 103 Chloride 105 Carbon Dioxide 25 POC Total CO2 22 L Anion Gap 9.0 POC Anion Gap 19.0 POC BUN 18 BUN 17 Creatinine 0.89 POC Creatinine 0.8 Est Cr Clr Drug Dosing 145.5 Est GFR ( Amer) 100.1 Est GFR (Non-Af Amer) 86.4 BUN/Creatinine Ratio 19.4 Glucose 122 H POC Glucose (other) 121 H Calcium 9.0 POC Ioniz Calcium Sushma 1.13 Total Bilirubin 0.4 AST 26 ALT 35 Alkaline Phosphatase 70 Total Creatine Kinase 130 CK-MB (CK-2) < 1.0 CK/CKMB % Calc TNP Troponin I < 0.015 Total Protein 7.5 Albumin 3.6 Globulin 3.9 Albumin/Globulin Ratio 0.9 Lipase 204 09/24/18 20:25 WBC RBC Hgb POC Hgb Hct POC Hct MCV MCH MCHC RDW Std Deviation RDW Coeff of Rom Plt Count MPV Immature Gran % (Auto) Neut % (Auto) Lymph % (Auto) Hunt % (Auto) Eos % (Auto) Baso % (Auto) Immature Gran # (Auto) Neut # (Auto) Lymph # (Auto) Hunt # (Auto) Eos # (Auto) Baso # (Auto) POC D-Dimer > 450 H* POC Sodium Sodium POC Potassium Potassium POC Chloride Chloride Carbon Dioxide POC Total CO2 Anion Gap POC Anion Gap POC BUN BUN Creatinine POC Creatinine Est Cr Clr Drug Dosing Est GFR ( Amer) Est GFR (Non-Af Amer) BUN/Creatinine Ratio Glucose POC Glucose (other) Calcium POC Ioniz Calcium Sushma Total Bilirubin AST ALT Alkaline Phosphatase Total Creatine Kinase CK-MB (CK-2) CK/CKMB % Calc Troponin I Total Protein Albumin Globulin Albumin/Globulin Ratio Lipase Diagnostic Findings cta chest: 1. No evidence of pulmonary embolus. 2. Diffuse esophageal wall thickening with paraseptal fat infiltration. Findings suggest severe esophagitis. Gastroenterology consultation recommended. No evidence of perforation at this time. 3. No other evidence of acute intrathoracic pathology. ECG Additional Comments: ECG: NSR WITH RATE OF 91 Code Status & VTE Plan Code Status FULL CODE
[2018-09-24] MEDS ORDERED: ACETAMINOPHEN 325 MG TAB PO PRN (23:42)
[2018-09-24] MEDS ORDERED: ALUMINUM/MAGNESIUM SUSP 30 ML UDC PO PRN (23:42)
[2018-09-24] MEDS ORDERED: ONDANSETRON INJ 2 MG/ML 2 ML VIAL IV PRN (23:42)
[2018-09-24] MEDS ORDERED: NITROGLYCERIN SL 0.4 MG/TAB TAB SL PRN (23:42)
[2018-09-24] MEDS ORDERED: HYDROmorphone INJ 0.5 MG/0.5 ML SYR IV PRN (23:42)
[2018-09-25] MEDS: SODIUM CHLORIDE 0.9% 1000ML 1,000 ML IV SCH ×2 (01:16→07:47)
[2018-09-25] MEDS ORDERED: PROMETHAZINE HCL 12.5 MG in SODIUM CHLORIDE 0.9% 50 ML IV PRN (01:21)
--- NOTE | 2018-09-25 02:55 | Emergency Department Note ---
Entered by Nargis Jessica acting as a scribe for Bentley Trujillo MD History of Present Illness General Chief complaint: Shortness of Breath/Dyspnea Stated complaint: HEART BURN, SOB Time Seen by Provider: 09/24/18 19:56 Source: patient History of Present Illness Onset (ago): hour(s) (1.5) Location: chest Radiation: back and other (throat ) Pain Consistency: + other (persistent ) Maximum Pain Intensity: 10 Quality: + other (heartburn) Associated symptoms: + other (negative abdominal pain; negative itchiness) The patient is a 33 year old female who presents to the Emergency Room with complaints of persistent heartburn that began 1.5 hours ago. The patient states that this feeling radiates into her back and her throat. She states that this is the worst heartburn of her life. The patient denies abdominal pain and itchiness. She states that she is on a two week liquid diet. The patient denies any chance she may be . Home Medications Home Medications Medication Instructions Recorded Confirmed Type cholecalciferol (vitamin D3) 50,000 units PO WK 09/24/18 09/24/18 History cyanocobalamin (vitamin B-12) 1,000 mcg IM WK 09/24/18 09/24/18 History norelgestromin-ethin.estradiol 1 patch TOPICAL DIRECTED 09/24/18 09/24/18 History [Antwan] Allergies Allergy/AdvReac Type Severity Reaction Status Date / Time No Known Allergies Allergy Verified 09/24/18 20:10 Past Med/Surg History Medical History Migraine (Chronic) Social History Preferred Language: Romanian Communication Ability: Effective Beliefs That Will Affect Care: None Current Living Situation: Family Feels Safe at Home: Yes Safety Concerns: Feels Safe At This Time Smoking Status: Never smoker Hx Alcohol Use: No Hx Substance Use: No Review of Systems See HPI for pertinent positives & negatives. and A total of 10 systems reviewed and were otherwise negative Physical Exam Vital Signs Vital Signs - 24 hr 09/24/18 19:24 09/24/18 19:58 09/24/18 20:25 Temperature 36.8 C Temperature Source Oral Sepsis Recent Fever Within 48 Hours No Sepsis New/Unexplained Change in Mental Status No Sepsis Action Taken by Nursing No Action Required Pulse Rate 100 H Pulse Rate [Right Finger] Pulse Rhythm [Right Finger] Pulse Strength [Right Finger] Respiratory Rate 24 Respiratory Effort / Characteristics Non-Labored Respiratory Depth Normal Respiratory Pattern Regular Blood Pressure 150/106 H Blood Pressure [Right Arm] Blood Pressure Mean 120 Blood Pressure Mean [Right Arm] Blood Pressure Position [Right Arm] Pulse Oximetry 99 94 Oxygen Delivery Method Room Air 09/24/18 21:27 09/24/18 21:52 09/24/18 22:45 Temperature Temperature Source Sepsis Recent Fever Within 48 Hours Sepsis New/Unexplained Change in Mental Status Sepsis Action Taken by Nursing Pulse Rate Pulse Rate [Right Finger] 89 88 79 Pulse Rhythm [Right Finger] Pulse Strength [Right Finger] Respiratory Rate 19 16 19 Respiratory Effort / Characteristics Respiratory Depth Respiratory Pattern Blood Pressure Blood Pressure [Right Arm] 177/128 H 172/98 H 138/67 Blood Pressure Mean Blood Pressure Mean [Right Arm] 144 122 90 Blood Pressure Position [Right Arm] Lying Pulse Oximetry 100 97 99 Oxygen Delivery Method Room Air 09/24/18 23:15 09/24/18 23:59 Temperature 36.6 C Temperature Source Oral Sepsis Recent Fever Within 48 Hours Sepsis New/Unexplained Change in Mental Status Sepsis Action Taken by Nursing Pulse Rate 79 Pulse Rate [Right Finger] 86 Pulse Rhythm [Right Finger] Regular Pulse Strength [Right Finger] Normal Respiratory Rate 19 18 Respiratory Effort / Characteristics Non-Labored Respiratory Depth Normal Respiratory Pattern Regular Blood Pressure 138/67 Blood Pressure [Right Arm] 138/85 Blood Pressure Mean Blood Pressure Mean [Right Arm] 102 Blood Pressure Position [Right Arm] Sitting Pulse Oximetry 99 96 Oxygen Delivery Method Room Air Room Air GENERAL: Awake, alert, in no distress. Uncomfortable in appearance. HENT: Normocephalic, atraumatic. Oropharynx unremarkable. EYES: Normal conjunctiva. Sclera non-icteric. NECK: Supple. No nuchal rigidity. FROM. No masses. RESPIRATORY: Clear to auscultation. No wheezes. No rales. Normal respiratory effort. CARDIAC: Normal rate. Normal rhythm. No murmurs. No rubs. Extremities warm and well perfused. Pulses equal. No JVD. GI: Soft, non-distended. No tenderness to palpation. No rebound or guarding. No masses. RECTAL: Deferred. MUSCULOSKELETAL: Atraumatic. Chest examination reveals no tenderness. The back is symmetrical on inspection without obvious abnormality. There is no CVA tenderness to palpation. No joint edema. LOWER EXTREMITIES: Calves are equal size bilaterally and non-tender. No edema. No discoloration. NEURO: Normal sensorium. No sensory or motor deficits noted. Course 1999: The patient was evaluated in room B3B, and a complete history and physical examination were performed. 2056: I checked on the patient and updated her. 2124: I discussed the case with Dr. Lopez who recommends that the patient should be transferred to [place]. 2151: I discussed the case with Dr. Gale who states that the patient can be monitored here and does not accept the patient in transfer to [place]. 2199: I discussed the case with Dr. Cheung Hospitalist who accepted the patient for further evaluation. 2209: I checked on the patient and updated her. Consultations Consultation #1: I discussed the case with Dr. Lopez who states that the patient should be transferred to [place]. Time: 21:25 Consultation #2: I discussed the case with Dr. Gale who states that the patient can be monitored here and does not accept the patient in transfer to [place]. Time: 21:52 Consultation #3: I discussed the case with Dr. Cheung Hospitalist who accepted the patient for further evaluation. Time: 22:00 Administered Medications Pantoprazole Sodium 40 mg/ (Dextrose) 100 mls @ 20 mls/hr IV Q5H TUAN Stop: 10/24/18 21:44 Last Admin: 09/24/18 22:17 Dose: 20 mls/hr Documented by: [id number] Sodium Chloride (Nss 1000ml) 1,000 mls @ 100 mls/hr IV .Q10H TUAN Stop: 10/24/18 23:41 Last Admin: 09/25/18 01:16 Dose: 100 mls/hr Documented by: [id number] Promethazine HCl 12.5 mg/ (Sodium Chloride) 50.5 mls @ 202 mls/hr IV Q6H PRN PRN Reason: Nausea And Vomiting Stop: 10/25/18 01:20 Last Admin: 09/25/18 01:43 Dose: 202 mls/hr Documented by: [id number] Discontinued Medications Al Hydrox/Mg Hydrox/Simethicone () 1 dose PO ONE ONE Stop: 09/24/18 20:03 Last Admin: 09/24/18 20:12 Dose: 1 dose Documented by: [id number] Famotidine (Pepcid) 20 mg PO NOW ONE Stop: 09/24/18 20:03 Last Admin: 09/24/18 20:12 Dose: 20 mg Documented by: [id number] Hydromorphone HCl (Dilaudid) 1 mg IV NOW STA Stop: 09/24/18 21:41 Last Admin: 09/24/18 21:46 Dose: 1 mg Documented by: [id number] Pantoprazole Sodium (Protonix Bolus/Drip) 0 mls @ 1 mls/hr IV ONE STA Stop: 09/24/18 21:41 Last Admin: 09/24/18 22:17 Dose: 1 mls/hr Documented by: [id number] Pantoprazole Sodium 80 mg/ (Dextrose) 120 mls @ 400 mls/hr IV NOW ONE Stop: 09/24/18 21:57 Last Infusion: 09/24/18 22:13 Dose: 0 mls/hr Documented by: [id number] Admin: 09/24/18 21:55 Dose: 400 mls/hr Documented by: [id number] Ioversol (Optiray 320 125ml) 91 ml IV ONCE PRN PRN Reason: Interaction Checking Stop: 09/28/18 21:06 Last Admin: 09/24/18 21:08 Dose: 91 ml Documented by: [id number] Ondansetron HCl (Zofran) 4 mg IV NOW STA Stop: 09/24/18 21:41 Last Admin: 09/24/18 21:46 Dose: 4 mg Documented by: [id number] Sucralfate (Carafate Tab) 1 gm PO NOW STA Stop: 09/24/18 20:03 Last Admin: 09/24/18 20:12 Dose: 1 gm Documented by: [id number] Medical Decision Making Differential Diagnosis Differential diagnosis: Etiologies such as shingles, musculoskeletal pain, pericarditis, myocarditis, cardiac ischemia, pericardial tamponade, pneumonia, pneumothorax, pleural effusion, hemothorax, pleurisy, aortic pathology, pulmonary embolism, intra- abdominal process, as well as others were considered. Home Medications Current Medication List: was personally reviewed by me Laboratory Data Attestation: I reviewed the patient's lab results. Result diagrams: 09/24/18 20:02 09/24/18 20:02 Lab Results 04/01/0509/24/18 09/24/18 Range/Units 20:02 20:02 20:22 WBC 8.36 (4.8-10.8) K/uL RBC 4.46 (4.2-5.4) M/uL Hgb 13.2 (12.0-16.0) g/dL POC Hgb 13.6 (12.0-16.0) g/dl Hct 39.3 (37-47) % POC Hct 40 (37-47) % MCV 88.1 (80-100) fL MCH 29.6 (25-34) pg MCHC 33.6 (32-36) g/dL RDW Std Deviation 44.9 (36.4-46.3) fL RDW Coeff of Rom 13.8 (11.5-14.5) % Plt Count 311 (130-400) K/uL MPV 9.4 (7.4-10.4) fL Immature Gran % (Auto) 0.2 % Neut % (Auto) 62.1 % Lymph % (Auto) 29.5 % [place] % (Auto) 7.4 % Eos % (Auto) 0.7 % Baso % (Auto) 0.1 % Immature Gran # (Auto) 0.02 (0.00-0.02) K/uL Neut # (Auto) 5.18 (1.4-6.5) K/uL Lymph # (Auto) 2.47 (1.2-3.4) K/uL [place] # (Auto) 0.62 H (0.11-0.59) K/uL Eos # (Auto) 0.06 (0-0.5) K/uL Baso # (Auto) 0.01 (0-0.2) K/uL POC D-Dimer (0-450) ng/mlFEU POC Sodium 139 (135-144) mEq/L Sodium 139 (136-145) mmol/L POC Potassium 3.9 (3.3-5.0) mEq/L Potassium 3.8 (3.5-5.1) mmol/L POC Chloride 103 (101-112) mEq/L Chloride 105 (98-107) mmol/L Carbon Dioxide 25 (21-32) mmol/L POC Total CO2 22 L (24-31) mEq/l Anion Gap 9.0 (3-11) POC Anion Gap 19.0 (16-25) mmol/L POC BUN 18 (7-18) mg/dl BUN 17 (7-18) mg/dl Creatinine 0.89 (0.6-1.2) mg/dl POC Creatinine 0.8 (0.6-1.3) mg/dl Est Cr Clr Drug Dosing 145.5 ml/min Est GFR ( Amer) 100.1 Est GFR (Non-Af Amer) 86.4 BUN/Creatinine Ratio 19.4 (10-20) Glucose 122 H (70-99) mg/dl POC Glucose (other) 121 H (70-99) mg/dl Calcium 9.0 (8.5-10.1) mg/dl POC Ioniz Calcium Sushma 1.13 (1.12-1.32) mmol/l Total Bilirubin 0.4 (0.2-1) mg/dl AST 26 (15-37) U/L ALT 35 (12-78) U/L Alkaline Phosphatase 70 (45-117) U/L Total Creatine Kinase 130 (26-192) U/L CK-MB (CK-2) < 1.0 (0.5-3.6) ng/ml CK/CKMB % Calc TNP Troponin I < 0.015 (0-0.045) ng/ml Total Protein 7.5 (6.4-8.2) gm/dl Albumin 3.6 (3.4-5.0) gm/dl Globulin 3.9 (2.5-4.0) gm/dl Albumin/Globulin Ratio 0.9 (0.9-2) Lipase 204 (73-393) U/L 09/24/18 Range/Units 20:25 WBC (4.8-10.8) K/uL RBC (4.2-5.4) M/uL Hgb (12.0-16.0) g/dL POC Hgb (12.0-16.0) g/dl Hct (37-47) % POC Hct (37-47) % MCV (80-100) fL MCH (25-34) pg MCHC (32-36) g/dL RDW Std Deviation (36.4-46.3) fL RDW Coeff of Rom (11.5-14.5) % Plt Count (130-400) K/uL MPV (7.4-10.4) fL Immature Gran % (Auto) % Neut % (Auto) % Lymph % (Auto) % [place] % (Auto) % Eos % (Auto) % Baso % (Auto) % Immature Gran # (Auto) (0.00-0.02) K/uL Neut # (Auto) (1.4-6.5) K/uL Lymph # (Auto) (1.2-3.4) K/uL [place] # (Auto) (0.11-0.59) K/uL Eos # (Auto) (0-0.5) K/uL Baso # (Auto) (0-0.2) K/uL POC D-Dimer > 450 H* (0-450) ng/mlFEU POC Sodium (135-144) mEq/L Sodium (136-145) mmol/L POC Potassium (3.3-5.0) mEq/L Potassium (3.5-5.1) mmol/L POC Chloride (101-112) mEq/L Chloride (98-107) mmol/L Carbon Dioxide (21-32) mmol/L POC Total CO2 (24-31) mEq/l Anion Gap (3-11) POC Anion Gap (16-25) mmol/L POC BUN (7-18) mg/dl BUN (7-18) mg/dl Creatinine (0.6-1.2) mg/dl POC Creatinine (0.6-1.3) mg/dl Est Cr Clr Drug Dosing ml/min Est GFR ( Amer) Est GFR (Non-Af Amer) BUN/Creatinine Ratio (10-20) Glucose (70-99) mg/dl POC Glucose (other) (70-99) mg/dl Calcium (8.5-10.1) mg/dl POC Ioniz Calcium Sushma (1.12-1.32) mmol/l Total Bilirubin (0.2-1) mg/dl AST (15-37) U/L ALT (12-78) U/L Alkaline Phosphatase (45-117) U/L Total Creatine Kinase (26-192) U/L CK-MB (CK-2) (0.5-3.6) ng/ml CK/CKMB % Calc Troponin I (0-0.045) ng/ml Total Protein (6.4-8.2) gm/dl Albumin (3.4-5.0) gm/dl Globulin (2.5-4.0) gm/dl Albumin/Globulin Ratio (0.9-2) Lipase (73-393) U/L Imaging Data Radiologist's Impression: Radiology results as stated below per my review and the radiologist's interpretation: XR chest 1V portable CLINICAL HISTORY: 33 years-old Female presenting with Chest Pain, heartburn for one week not improving. TECHNIQUE: Portable upright AP view of the chest was obtained. COMPARISON: 08/24/2017. FINDINGS: Cardiomediastinal silhouette normal. No focal opacity. No large effusion or pneumothorax. Osseous structures normal. Upper abdomen normal. IMPRESSION: 1. No acute cardiopulmonary disease. Electronically signed by: Reji Ziegler M.D. 09/24/2018 8:[address] angio chest PE protocol CLINICAL HISTORY: 33 years-old Female presenting with atypical chest pain, clinical concern for pulmonary embolus. TECHNIQUE: Multidetector CT angiography of the chest was performed after administration of intravenous contrast. 3-D volumetric and/or maximum intensity projection (MIP) images were subsequently reconstructed for review. IV contrast: None. One or more dose lowering techniques were used consistent with the principles of ALARA (as low as reasonably achievable), including automatic exposure control, mA or kV adjustment to individual patient size, and/or use of iterative reconstruction. COMPARISON: None. CT DOSE (mGy.cm): The estimated cumulative dose is 575.82 mGy.cm. 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 Pulmonary vasculature: The study is suboptimal for the assessment of the pulmonary vascular tree secondary to respiratory motion artifact. No filling defect within the pulmonary arteries to suggest embolus. Main pulmonary artery is not enlarged. No flattening of the interventricular septum. No intracardiac filling defect. No reflux of contrast into the hepatic veins. Remaining chest: Soft tissues: Normal thyroid and thoracic inlet. No axillary, supraclavicular, mediastinal, or hilar lymphadenopathy. Normal aorta. Normal heart size. No pericardial or pleural effusion. Significantly thickened esophagus throughout its entire length with esophageal fat infiltration. Lungs and airways: No pneumothorax. Central airways patent. Pulmonary arteries are not significantly enlarged relative to adjacent bronchi. No interlobular septal thickening. No focal infiltrate or nodule. Musculoskeletal: Normal osseous structures. IMPRESSION: 1. No evidence of pulmonary embolus. 2. Diffuse esophageal wall thickening with paraseptal fat infiltration. Findings suggest severe esophagitis. Gastroenterology consultation recommended. No evidence of perforation at this time. 3. No other evidence of acute intrathoracic pathology. Electronically signed by: Reji Ziegler M.D. 09/24/2018 9:15 PM ECG Data Attestation: I personally reviewed and interpreted this ECG as follows: Indication: chest pain Rate (beats per minute): 91 Rhythm: normal sinus Findings: + other (normal ECG); no ST depression and no ST elevation Blood Pressure Blood Pressure Findings: Elevated blood pressure Blood Pressure Disposition: further management by hospitalist STEPH Narrative This is a 33-year-old female who presents emergency department complaining of severe chest pain. The patient recently had a scope done approximately 1 month ago and has been on a liquid diet for the past 2 weeks in anticipation of gastric bypass surgery in [place] on Tuesday. Due to the nature of the patient's pain she was sent for a CAT scan of the chest. This was concerning for severe esophagitis that encompasses the entire esophagus. Due to this finding I did discuss the case with the on-call marble machine operator who recommended Protonix twice a day as well as Carafate 4 times a day with admission for observation. He recommended that the patient be transferred to [place]. I did discuss the case with [place] who refused the patient. Due to this I then discussed the case with the hospitalist here. The patient was pertinent placed on a Protonix bolus and drip and given Dilaudid for her pain. Impression & Plan Chest pain, Esophagitis Critical Care Time I have personally spent greater than 90 minutes of critical care time in the direct management of this patient. This includes bedside care, interpretation of diagnostic studies, and testing, discussion with consultants, patient, and family members, and other required patient management activities. This 90 minutes is in excess of all separately billable procedures. Critical Care Time: Yes Total Critical Care Time: 90 Discharge Plan Visit Data *Final* Discharge Date/Time: 09/24/18 23:15 Chief Complaint: Shortness of Breath/Dyspnea Stated Complaint: HEART BURN, SOB ED Provider: Bentley Trujillo Discharge Problem: Chest pain, Esophagitis Patient Disposition: Admitted As Inpatient Discharge Instructions Interventions: ED Discharge Assessment Last Done: 09/24/18 23:15 The scribe's documentation has been prepared under my direction and personally reviewed by me in its entirety. I confirm that the note above accurately reflects all work, treatment, procedures, and medical decision making performed by me.
[2018-09-25] MEDS: PANTOprazole 40 MG in DEXTROSE 5% 100 ML IV SCH ×3 (03:20→13:05)
[2018-09-25] MEDS: SUCRALFATE 1 GM TAB PO SCH ×2 (07:47→13:05)
[2018-09-25] MEDS ORDERED: LIDOCAINE HCL 2% 2 ML VIAL/AMP(20MG/ML) INFIL ONE (11:02)
[2018-09-25] MEDS ORDERED: fentaNYL citrate 100 MCG/2 ML VIAL ONE (11:02)
[2018-09-25] MEDS ORDERED: PROPOFOL IV EMULSION 10 MG/ML 20 ML VIAL IV ONE (11:02)
--- NOTE | 2018-09-25 11:10 | History & Physical Report ---
Date of Service September 25, 2018 Assessment & Plan (1) Epigastric abdominal pain: EGD today History of Present Illness Chief Complaint: non-cardiac chest pain; esophageal thickening on CT donet o r/o PE Primary Care Provider: Momo Calvo chest pain Allergies Allergy/AdvReac Type Severity Reaction Status Date / Time No Known Allergies Allergy Verified 09/24/18 20:10 Home Medications Home Medications Medication Instructions Recorded Confirmed Type cholecalciferol (vitamin D3) 50,000 units PO WK 09/24/18 09/24/18 History cyanocobalamin (vitamin B-12) 1,000 mcg IM WK 09/24/18 09/24/18 History norelgestromin-ethin.estradiol 1 patch TOPICAL DIRECTED 09/24/18 09/24/18 History [Antwan] Past Med/Surg History Medical History Epigastric abdominal pain Morbid obesity Migraine (Chronic) Surgical History H/O colonoscopy Hx of esophagogastroduodenoscopy Hx of tonsillectomy Family History Father Cancer Mother Diabetes Deep vein thrombosis Obesity Social History Preferred Language: Cameroonian Communication Ability: Effective Beliefs That Will Affect Care: None Current Living Situation: Family Feels Safe at Home: Yes Safety Concerns: Feels Safe At This Time Smoking Status: Never smoker Hx Alcohol Use: No Hx Substance Use: No Review of Systems 12 systems reviewed and negative except as noted Physical Exam Vital Signs (Past 24 Hours): Last Vital Signs Temp 36.5 C 09/25/18 07:51 Pulse 86 09/25/18 07:51 Resp 18 09/25/18 07:51 BP 133/86 09/25/18 07:51 Pulse Ox 96 09/25/18 07:51 Constitutional: WD/WN, vitals as above Respiratory: normal respiratory effort, lungs clear to auscultation Cardiovascular: RRR, no murmur, no edema Gastrointestinal (Abdomen): normal bowel sounds, soft, nontender, no hepatosplenomegaly
[2018-09-25] MEDS ORDERED: KETAMINE HCL INJ 50 MG/ML 10 ML VIAL ONE (11:12)
[2018-09-25] MEDS ORDERED: MIDAZOLAM HCL 1 MG/ML 2ML VIAL ONE (11:13)
--- NOTE | 2018-09-25 11:27 | Gastrointestinal Consultation ---
Date of Consultation September 25, 2018 Assessment & Plan (1) Epigastric abdominal pain: EGD today Further recommendations to follow EGD Supervising Physician Co-Signing Physician Notes Late entry: The patient was seen and examined with EDISON Montgomery on 09/25. Her note reflects our findings and plan History of Present Illness Reason for Consultation: severe esophagitis Requesting Physician: Dr. Faye Attending Physician: Vicky Francis MD History of Present Illness Ms. Bonny Miguel is a 33 yr old female pt with a hx of obesity who is undergoing the GI nutrition weight loss program with plans for gastric bypass on Wednesday 09/27 at [place]. Unfortunately, yesterday, while riding in a car, she experienced severe chest burning, chest and upper abdomen pain radiating to her mid back, burning throat. She has been on a liquid diet in anticipation of the surgery. She has a hx of mild, infrequent reflux disease, not medicated and she tells me that she underwent EGD a few months ago, in preparation for the surgery, with findings of Grade A reflux esophagitis. On arrival, D-dimer was (+) and chest CTA was (-) for PE but suggested esophagitis. Troponins and EKGs have been normal. She denies any abdominal pain, vomiting, melena or hematochezia. She has had some constipation. Her most recent BM was yesterday morning, small, firm. Allergies Allergy/AdvReac Type Severity Reaction Status Date / Time No Known Allergies Allergy Verified 09/24/18 20:10 Home Medications Home Medications Medication Instructions Recorded Confirmed Type Xulane 1 patch TOPICAL DIRECTED 09/24/18 09/24/18 History cholecalciferol (vitamin D3) 50,000 units PO WK 09/24/18 09/24/18 History cyanocobalamin (vitamin B-12) 1,000 mcg IM WK 09/24/18 09/24/18 History pantoprazole [Protonix] 40 mg PO BID 14 Days #28 tab 09/25/18 Rx sucralfate 1 g PO QID 30 Days #120 tab 09/25/18 Rx Patient History Medical History Epigastric abdominal pain Morbid obesity Migraine (Chronic) Surgical History H/O colonoscopy Hx of esophagogastroduodenoscopy Hx of tonsillectomy Family History Father Cancer Mother Diabetes Deep vein thrombosis Obesity Social History Preferred Language: Pashto Beliefs That Will Affect Care: None Current Living Situation: Family Feels Safe at Home: Yes Safety Concerns: Feels Safe At This Time Smoking Status: Never smoker Hx Alcohol Use: No Hx Substance Use: No Review of Systems Gen: Denies fever, weakness, weight loss. Eyes: no vision changes, no eye redness or pain Respiratory: No SOB, no cough Cardiovascular: No irregular heartbeats or chest pain Abdomen: See HPI, No abdominal pain, no nausea/vomiting Ext: No edema Hem: No excessive bruising/bleeding Physical Exam Vital Signs (Past 24 Hours): Last Vital Signs Temp 36.1 C L 09/25/18 11:12 Pulse 89 09/25/18 11:12 Resp 18 09/25/18 11:12 BP 133/88 09/25/18 11:12 Pulse Ox 98 09/25/18 11:12 Constitutional: WD/WN, vitals as above + obese ENMT: external ear and nose normal, oropharynx normal Neck: trachea midline, no thyromegaly Respiratory: normal respiratory effort, lungs clear to auscultation Cardiovascular: RRR, no murmur, no edema Gastrointestinal (Abdomen): normal bowel sounds, soft, nontender, no hepatosplenomegaly Skin: no rashes, warm and dry Neurologic: PERRL, EOMI, accommodation nl, no face palsy, no dysarthria Psychiatric: A+Ox3, euthymic affect Lymphatic: no cervical or axillary lymphadenopathy Results & Data Laboratory Results WBC 8.3, Hb 13.2, Hct39, Platelets 311. Diagnostic Findings CTA 09/24/18: 1. No evidence of pulmonary embolus. 2. Diffuse esophageal wall thickening with paraseptal fat infiltration. Findings suggest severe esophagitis. Gastroenterology consultation recommended. No evidence of perforation at this time. 3. No other evidence of acute intrathoracic pathology. Medications Administered Protonix IV BID, Carafate QID
--- NOTE | 2018-09-25 11:32 | Anesthesiology Consultation ---
Date of Service September 25, 2018 Assessment & Plan (1) Encounter for pre-operative examination: Chart Review Chart Review: Acceptable Risk for Surgery and Patient NOT seen in Pre Admission Testing Consults Requested none NPO Date Last Intake of Fluids: 09/25/18 Time Last Intake of Fluids: 08:00 Last Intake of Fluids Comment: liquid breakfast Date Last Intake of Solids: 09/11/18 History Surgery Operation Date: 09/25/18 10:10 Proposed Procedures p Esophagogastroduodenoscopy Dr Dobbins - Leah Dobbins Height/Weight Height: 5 ft 8 in Weight: 155 kg Allergies Allergy/AdvReac Type Severity Reaction Status Date / Time No Known Allergies Allergy Verified 09/24/18 20:10 Medications Home Medications Medication Instructions Recorded Confirmed Last Taken cholecalciferol (vitamin D3) 50,000 units PO WK 09/24/18 09/24/18 09/17/18 cyanocobalamin (vitamin B-12) 1,000 mcg IM WK 09/24/18 09/24/18 09/17/18 norelgestromin-ethin.estradiol 1 patch TOPICAL DIRECTED 09/24/18 09/24/18 09/23/18 [Xulane] PATCH ON Active Medications Generic Name Dose Route Start Last Admin Trade Name Freq PRN Reason Stop Dose Admin Pantoprazole Sodium 40 mg/ 100 mls @ 20 mls/hr 09/24/18 21:45 09/25/18 07:47 Dextrose IV 10/24/18 21:44 20 mls/hr Q5H TUAN Administration Sodium Chloride 1,000 mls @ 100 mls/hr 09/24/18 23:42 09/25/18 07:47 Nss 1000ml IV 10/24/18 23:41 100 mls/hr .Q10H TUAN Administration Promethazine HCl 12.5 mg/ 50.5 mls @ 202 mls/hr 09/25/18 01:21 09/25/18 02:00 Sodium Chloride IV 10/25/18 01:20 Infused Q6H PRN Infusion Nausea And Vomiting Sucralfate 1 gm 09/25/18 09:00 09/25/18 07:47 Carafate Tab PO 10/25/18 08:59 1 gm QID TUAN Administration Past Medical History Medical History Epigastric abdominal pain Morbid obesity Migraine (Chronic) Past Family History Family History Father Cancer Mother Diabetes Deep vein thrombosis Obesity Past Surgical History Surgical History H/O colonoscopy Hx of esophagogastroduodenoscopy Hx of tonsillectomy Social History Smoking Status: Never smoker Hx Alcohol Use: No Hx Substance Use: No Physical Exam Vital Signs Last Vital Signs Temp 36.1 C L 09/25/18 11:12 Pulse 89 09/25/18 11:12 Resp 18 09/25/18 11:12 BP 133/88 09/25/18 11:12 Pulse Ox 98 09/25/18 11:12 Testing Laboratory Results 09/24/18 20:02 09/24/18 20:02
--- NOTE | 2018-09-25 11:57 | GI REPORT ---
Patient Name: Bonny Miguel Procedure Date: 09/25/2018 11:03 AM Date of : 1985 Admit Type: Inpatient Age: 33 Gender: Female Attending MD: Leah Dobbins DO Procedure: Upper GI endoscopy Providers: Leah Dobbins DO Referring MD: Vicky Francis Indications: Epigastric abdominal pain, Chest pain (non cardiac) Medicines: Monitored Anesthesia Care Complications: No immediate complications. Estimated blood loss: Minimal. Estimated Blood Loss: Estimated blood loss was minimal. Procedure: Pre-Anesthesia Assessment: - Prior to the procedure, a History and Physical was performed, and patient medications, allergies and sensitivities were reviewed. The patient's tolerance of previous anesthesia was reviewed. - The risks and benefits of the procedure and the sedation options and risks were discussed with the patient. All questions were answered and informed consent was obtained. - Patient identification and proposed procedure were verified prior to the procedure by the physician and the nurse. The procedure was verified in the pre-procedure area in the procedure room. - Mental Status Examination: alert and oriented. Airway Examination: normal oropharyngeal airway and neck mobility. Respiratory Examination: clear to auscultation. CV Examination: normal. Abdominal Examination: bowel sounds present, abdomen soft and non-tender, no masses or organomegaly noted. - ASA Grade Assessment: III - A patient with severe systemic disease. After obtaining informed consent, the endoscope was passed under direct vision. Throughout the procedure, the patient's blood pressure, pulse, and oxygen saturations were monitored continuously. The Endoscope was introduced through the mouth, and advanced to the second part of duodenum. The upper GI endoscopy was accomplished without difficulty. The patient tolerated the procedure well. Findings: The examined esophagus was normal. Biopsies were taken with a cold forceps for histology. Verification of patient identification for the specimen was done by the physician and nurse using the patient's name and date. Estimated blood loss was minimal. The stomach was normal. The examined duodenum was normal. Impression: - Mild esophagitis. Lower and mid esophagus biopsied. - Normal stomach. - Normal examined duodenum. Recommendation: - Await pathology results. - Follow an antireflux regimen. - Use a proton pump inhibitor PO daily. - Return patient to hospital [facility] for possible discharge same day. Leah T. Suvock, Daniel Dobbins DO 09/25/2018 11:56:45 AM This report has been signed electronically. Note Initiated On: 09/25/2018 11:03 AM Number of Addenda: 0 I attest to the content of the Intraoperative Record and orders documented therein, exceptions below {[id number]}
--- NOTE | 2018-09-25 12:16 | Anesthesiology Progress Note ---
Date of Service September 25, 2018 Anesthesia Post Procedure Vital Signs Vital Signs: Temp Pulse Pulse Resp BP BP BP 09/25/18 12:07 81 18 122/83 09/25/18 11:58 90 17 164/90 H 09/25/18 11:12 36.1 C L 89 18 133/88 09/25/18 07:51 36.5 C 86 18 133/86 09/24/18 23:59 36.6 C 86 18 138/85 09/24/18 23:15 79 19 138/67 09/24/18 22:45 79 19 138/67 09/24/18 21:52 88 16 172/98 H 09/24/18 21:27 89 19 177/128 H 09/24/18 20:25 09/24/18 19:24 36.8 C 100 H 24 150/106 H Pulse Ox 09/25/18 12:07 99 09/25/18 11:58 99 09/25/18 11:12 98 09/25/18 07:51 96 09/24/18 23:59 96 09/24/18 23:15 99 09/24/18 22:45 99 09/24/18 21:52 97 09/24/18 21:27 100 09/24/18 20:25 94 09/24/18 19:24 99 Pain Intensity Abdomen: Pain Intensity: 4 Notes Mental Status: alert / awake / arousable Patient Amnestic to Procedure: Yes Nausea / Vomiting: adequately controlled Pain: adequately controlled Airway Patency, RR, SpO2: stable & adequate BP & HR: stable & adequate Hydration State: stable & adequate Anesthetic Complications: no major complications apparent and Pt Satisfied with anesthetic care
--- NOTE | 2018-09-25 17:02 | Discharge Summary ---
Date of Service September 25, 2018 Admission HPI Per Admitting Provider chest pain Principal Diagnosis Epigastric pain/esophagitis Discharge Exam Constitutional WD/WN, vitals as above + morbidly obese and + obese ENMT external ear and nose normal, oropharynx normal Mouth: + dental restorations (lower braces) Mallampati Class: II Neck trachea midline, no thyromegaly normal visual inspection Respiratory normal respiratory effort, lungs clear to auscultation normal respiratory effort Cardiovascular RRR, no murmur, no edema Rate/Rhythm: regular rate and regular rhythm Gastrointestinal (Abdomen) normal bowel sounds, soft, nontender, no hepatosplenomegaly Musculoskeletal Spine: no pain with cervical ROM Skin no rashes, warm and dry Neurologic PERRL, EOMI, accommodation nl, no face palsy, no dysarthria moves all extremities Psychiatric A+Ox3, euthymic affect Orientation: alert and oriented x 3 Lymphatic no cervical or axillary lymphadenopathy Discharge Data Allergies Allergy/AdvReac Type Severity Reaction Status Date / Time No Known Allergies Allergy Verified 09/24/18 20:10 Consultations 09/24/18 22:06 ED Decision to Admit Stat 09/25/18 08:00 Consult Gastroenterology Routine Procedures Performed Operation Date: 09/25/18 10:10 Actual Procedures p EGD Biopsy Cytology - Leah Dobbins Ordered Studies 09/24/18 20:40 CT angio chest PE protocol Stat Hospital Course (1) Epigastric abdominal pain: Presented with sudden onset of epigastric pain discomfort CTA of chest shows no evidence of PE, possible severe esophagitis Patient made n.p.o., continue with IV Protonix drip, labs vitals remained stable, GI, consulted, appreciate input Status post EGD today showed mild esophagitis,l normal gastric antrum, normal duodenum patient is stable to be discharged home with p.o.Carafate/Protonix 40 mg p.o. t wice daily for 2 weeks, then reduce the dose to once daily prescription sent to pharmacy Patient is continued with clear liquid diet for scheduled gastric bypass surgery in [address] [place] [address] on 09/25/2018 (2) Morbid obesity: PLAN FOR GASTRIC BYPASS Clinically stable, no contraindication to proceed for scheduled gastric bypass s urgery (3) Chest pain: Resolved, secondary to acid reflux, esophagitis, symptom resolved with Carafate, Protonix, EGD shows mild esophagitis, CT chest with contrast shows no evidence of PE Medically stable to be discharged home today Total Time Total Time Spent Total Time Spent (In Minutes): Proximal 40 minutes Total Time Includes: Examination of the Patient, Discharge Planning and Medication Reconciliation Discharge Plan Discharge Items Patient Disposition: Home - Self-Care Reason For Visit: CHEST PAIN/SOB Discharge Diagnosis: EPIGASTRIC PAIN /ACID REFLUX Discharge Goals: Decrease discomfort and Therapeutic intervention Activity: Resume your previous activity Non-emergency contact: Primary Care Provider Call non-emergency contact if: you have any medication questions Follow-up/Referrals: Momo Calvo PAJosé [Primary Care Provider] - Diet: Clear liquid Addtl Provider Instructions: CONTINUE TO TAKE CARAFATE FOUR TIMES DAILY PROTONIX 40 MG TWICE DAILY Prescriptions: New sucralfate 1 gram Tablet 1 g PO QID 30 Days Qty: 120 RF: 3 pantoprazole [Protonix] 40 mg tablet,delayed release (DR/EC) 40 mg PO BID 14 Days Qty: 28 RF: 2 Continued cyanocobalamin (vitamin B-12) 1,000 mcg/mL solution 1,000 mcg IM WK RF: 0 Xulane 150-35 mcg/24 hr patch weekly 1 patch topical DIRECTED RF: 0 cholecalciferol (vitamin D3) 50,000 unit capsule 50,000 units PO WK RF: 0 Stand-Alone Forms: [facility] Discharge Orders: Discharge Order (Routine); Ordered 09/25/18 Ordered By: Vicky Francis Admission Data Admit Date/Time: 09/24/18 22:39 Attending Provider: Vicky Francis Admit Provider: Bigg Faye Primary Care Provider: Momo Calvo Other Providers: Bigg Faye ; Arturo Schumacher ; Ishaan Mejia ; Rosanne Ocampo ; Cristian Church ; Maria Alejandra Arredondo ; Suma Crowley ; Dot Hewitt ; Jaspal Perez ; Markie Loo ; Analy Lang ; Leah Dobbins ; Mojgan Everett ; Shantal Garvin ; Adriana Beck Service: Telemetry Medical Other Interventions: Discharge Summary Assessment (RN) Last Done: 09/25/18 17:01 DC Date/Time DO NOT enter until pt leaves facility: 09/25/18 17:40
[2018-09-25] MEDS ORDERED: SUCRALFATE 1 GM TAB PO SCH (17:15)
== END 2018-09-25 17:40 | disposition home or self-care (01) ==
LOC: 2N 19:10 → ED 19:10 → 2N 23:15

== ENCOUNTER 2018-10-07 15:36 | Observation (INO) ==
[2018-10-07] MEDS ORDERED: methylPREDNISolone 125 MG/2 ML VIAL IV STA (15:56)
[2018-10-07] MEDS ORDERED: SODIUM CHLORIDE 0.9% 1000ML 2,000 ML IV SCH (16:00)
[2018-10-07 16:43] LABS: Eosinophils # (auto) 0.07 K/uL (0-0.5); Eosinophils % (auto) 0.7 %; Hematocrit (blood only) 40.9 % (37-47); Hemoglobin 14.2 g/dL (12.0-16.0); Immature Granulocytes # (auto) 0.02 K/uL (0.00-0.02); Immature Granulocytes % (auto) 0.2 %; Lymphocytes # (auto) 1.82 K/uL (1.2-3.4); Lymphocytes % (auto) 18.7 %; Mean Corpuscular Hgb Conc 34.7 g/dL (32-36); Mean Corpuscular Volume 85.6 fL (80-100); Mean Platelet Volume 10.3 fL (7.4-10.4); Monocytes # (auto) 0.75 K/uL (0.11-0.59); Monocytes % (auto) 7.7 %; Neutrophils # (auto) 7.06 K/uL (1.4-6.5); Neutrophils % (auto) 72.7 %; Platelet Count 316 K/uL (130-400); RDW Coefficient of Variation 14.1 % (11.5-14.5); RDW Standard Deviation 43.5 fL (36.4-46.3); Red Blood Count 4.78 M/uL (4.2-5.4); White Blood Count 9.72 K/uL (4.8-10.8)
[2018-10-07 17:09] LABS: Albumin Globulin Ratio 0.9 (0.9-2); Albumin Level 3.7 gm/dl (3.4-5.0); BUN Creatinine Ratio 17.7 (10-20); Bilirubin,Total 1.2 mg/dl (0.2-1); Calcium 9.3 mg/dl (8.5-10.1); Creatinine Clr Calc Pharmacy 150.5 ml/min; Est GFR (African American) 108.9; Globulin 3.9 gm/dl (2.5-4.0); Total Protein 7.6 gm/dl (6.4-8.2)
[2018-10-07] MEDS ORDERED: GI COCKTAIL ED USE PO ONE (17:22)
--- NOTE | 2018-10-07 19:19 | Ultrasound Report ---
Biliary ultrasound CLINICAL HISTORY: ruq abd pain history of gastric bypass COMPARISON STUDY: No previous studies for comparison. FINDINGS: The pancreas was nonvisualized due to overlying bowel gas shadowing. There are suspected he patic steatosis. No focal masses are visualized. The gallbladder appears sonographically normal. Ther e is no ductal dilatation. The common bile duct measures 5 mm. There is no right-sided hydronephrosis . IMPRESSION: 1. Nondiagnostic evaluation of the pancreas 2. Ultrasonographically normal gallbladder. No ductal dilatation 3. Suspected hepatic steatosis Electronically signed by: Gilmar Carr M.D. 10/07/2018 7:18 PM
[2018-10-07 20:14] LABS: BUN Creatinine Ratio 16.6 (10-20); Calcium 8.8 mg/dl (8.5-10.1); Creatinine Clr Calc Pharmacy 168.8 ml/min; Est GFR (African American) 125.1
--- NOTE | 2018-10-07 20:25 | XRay Report ---
XR abdomen 2V w PA chest CLINICAL HISTORY: Abdominal pain. Recent surgery. COMPARISON STUDY: 09/24/2018 FINDINGS: The heart is normal in size. There is no focal pulmonary consolidation. There is no free in traperitoneal air. Erect and supine views the abdomen reveal mildly prominent gas-filled loops of sma ll bowel. There are scattered air-fluid levels. The colon is relatively decompressed. IMPRESSION: 1. Nonspecific bowel gas pattern with prominent gas-filled small bowel loops and scattered air-fluid levels. While likely secondary to a postoperative ileus, a small bowel obstruction could appear simil ar. Clinical and radiographic follow-up is recommended. 2. No evidence of free air Electronically signed by: Gilmar Carr M.D. 10/07/2018 8:24 PM
--- NOTE | 2018-10-07 20:37 | Emergency Department Note ---
Entered by Nicki Cullen acting as a scribe for History of Present Illness General Chief complaint: Allergic Reaction Stated complaint: ALLERGIC REACTION - NAUSEA, THROAT SWELLING Source: patient History of Present Illness Onset (ago): hour(s) 2 Location: mouth (throat), back, abdomen (epigastric), left (arm) and right (arm) Radiation: back Pain Consistency: + now resolved (epigastric pain) and + other (after taking colace for the first time) Maximum Pain Intensity: 10 Quality: + other (allergic reaction) Associated symptoms: + rash and + other (Positive epigastric pain, feeling of he r throat closing, sharp stabbing pains in her bilateral arms and back, itchiness. 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 She states that a few weeks ago, she had gastric bypass surgery. She states she took colace for the first time today and 20 minutes after taking the medication, she began feeling her throat closing and sharp stabbing pains in her bilateral arms and back. She had epigastric pain radiating through her back this morning which resolved on arrival to the ED. The patient also states that she broke out into a rash all over her skin which is very itchy. No significant vomiting. She does intermittently get reflux which is consistent with her reflux prior to the surgery. Does have some pain that radiates to her left shoulder from the epigastric region. Home Medications Home Medications Medication Instructions Recorded Confirmed Type Xulane 1 patch TOPICAL DIRECTED 09/24/18 10/07/18 History cyanocobalamin (vitamin B-12) 1,000 mcg IM WK 09/24/18 10/07/18 History pantoprazole [Protonix] 40 mg PO BID 14 Days #28 tab 09/25/18 10/07/18 Rx docusate sodium [Colace] 100 mg PO BID PRN 10/07/18 10/07/18 History levothyroxine 88 mcg PO DAILY 10/07/18 10/07/18 History Allergies Allergy/AdvReac Type Severity Reaction Status Date / Time No Known Allergies Allergy Verified 10/07/18 16:11 Past Med/Surg History Medical History Epigastric abdominal pain Morbid obesity Migraine (Chronic) Surgical History H/O colonoscopy Hx of esophagogastroduodenoscopy Hx of tonsillectomy Family History Father Cancer Mother Diabetes Deep vein thrombosis Obesity Social History Preferred Language: Marshallese Communication Ability: Effective Beliefs That Will Affect Care: None Current Living Situation: Family Feels Safe at Home: Yes Smoking Status: Never smoker Hx Alcohol Use: No Hx Substance Use: No Review of Systems See HPI for pertinent positives & negatives. and A total of 10 systems reviewed and were otherwise negative Physical Exam Vital Signs Vital Signs - 24 hr 10/07/18 15:41 10/07/18 15:53 10/07/18 16:33 Temperature 36.6 C Temperature Source Oral Sepsis Recent Fever Within 48 Hours No Sepsis Action Taken by Nursing No Action Required Pulse Rate 135 H 132 H 110 H Pulse Rate from SpO2 Sensor 106 H Respiratory Rate 26 H 27 H 15 Blood Pressure 134/86 Blood Pressure Mean 102 Blood Pressure Position Sitting Pulse Oximetry 97 97 Oxygen Delivery Method Room Air 10/07/18 16:47 10/07/18 17:00 10/07/18 17:19 Temperature Temperature Source Sepsis Recent Fever Within 48 Hours Sepsis Action Taken by Nursing Pulse Rate 101 H 96 H Pulse Rate from SpO2 Sensor Respiratory Rate 27 H 27 H Blood Pressure 163/89 H Blood Pressure Mean 113 Blood Pressure Position Pulse Oximetry 97 Oxygen Delivery Method Room Air 10/07/18 18:00 10/07/18 18:52 Temperature Temperature Source Sepsis Recent Fever Within 48 Hours Sepsis Action Taken by Nursing Pulse Rate 92 H 91 H Pulse Rate from SpO2 Sensor 91 H Respiratory Rate 25 H 31 H Blood Pressure 150/97 H Blood Pressure Mean 114 Blood Pressure Position Pulse Oximetry 100 Oxygen Delivery Method GENERAL: Morbidly obese, sitting up in bed, disheveled EYE EXAM: normal conjunctiva. OROPHARYNX: no exudate, no erythema, lips, buccal mucosa, and tongue normal and mucous membranes are moist NECK: supple, no nuchal rigidity, no adenopathy, non-tender LUNGS: Clear to auscultation. Normal chest wall mechanics HEART: no murmurs, S1 normal and S2 normal ABDOMEN: abdomen soft, non-tender, normo-active bowel, sounds, no masses, no rebound or guarding. Incision sites are clean, dry, and intact BACK: Back is symmetrical on inspection and there is no deformity, no midline tenderness, no CVA tenderness. SKIN: no bruising. Diffuse erythematous rash throughout entire body, blanches. No petechiae. No nikolsky sign UPPER EXTREMITIES: upper extremities are grossly normal. LOWER EXTREMITIES: No pitting edema. NEURO EXAM: Normal sensorium, cranial nerves II-XII grossly intact, normal speec h, no gross weakness of arms, no gross weakness of legs. Course ED COURSE: Vital signs were reviewed and showed hypertensive The patients medical record was reviewed The above diagnostic studies were performed and reviewed. ED treatments and interventions as stated above. 1553: The patient was evaluated in room B12. A complete history and physical examination was performed. 1704: I checked on the patient at this time. She is feeling much better. 1941: I reviewed the patient's case with Dr. Faye, [facility] Hospitalist. He will evaluate the patient for further management. 1944: Upon reevaluation, the patient is feeling slightly better. I discussed my findings with the patient and she understands and agrees with the treatment plan. Based on the patients age, coexisting illnesses, exam and lab findings the decision to treat as an inpatient was made. The patient remained stable while under my care. The patient will be evaluated for further management. Administered Medications Discontinued Medications Al Hydrox/Mg Hydrox/Simethicone () 1 dose PO ONE ONE Stop: 10/07/18 17:23 Last Admin: 10/07/18 18:29 Dose: 1 dose Documented by: [id number] Diphenhydramine HCl (Benadryl Capsule) 50 mg PO NOW STA Stop: 10/07/18 15:57 Last Admin: 10/07/18 16:44 Dose: 50 mg Documented by: [id number] Sodium Chloride (Nss 1000ml) 2,000 mls @ 999 mls/hr IV .Q2H1M TUAN Stop: 10/07/18 18:00 Last Infusion: 10/07/18 18:55 Dose: 0 mls/hr Documented by: [id number] Admin: 10/07/18 16:44 Dose: 999 mls/hr Documented by: [id number] Methylprednisolone (Solumedrol) 125 mg IV NOW STA Stop: 10/07/18 15:57 Last Admin: 10/07/18 16:44 Dose: 125 mg Documented by: [id number] Ranitidine HCl (Zantac) 150 mg PO NOW STA Stop: 10/07/18 15:57 Last Admin: 10/07/18 16:44 Dose: 150 mg Documented by: [id number] Medical Decision Making Differential Diagnosis Differential diagnosis: Etiologies such as allergic reaction, anaphylaxis, urticaria, Bull-Gee syndrome, toxic epidermal necrolysis, erythema multiforme, cellulitis, as well as others were entertained. Medical Records Attestation: I reviewed the patient's medical records. Home Medications Current Medication List: was personally reviewed by me Laboratory Data Attestation: I reviewed the patient's lab results. Result diagrams: 10/07/18 16:32 10/07/18 19:44 Lab Results 10/07/18 10/07/18 10/07/18 Range/Units 16:32 16:32 18:12 WBC 9.72 (4.8-10.8) K/uL RBC 4.78 (4.2-5.4) M/uL Hgb 14.2 (12.0-16.0) g/dL Hct 40.9 (37-47) % MCV 85.6 (80-100) fL MCH 29.7 (25-34) pg MCHC 34.7 (32-36) g/dL RDW Std Deviation 43.5 (36.4-46.3) fL RDW Coeff of Rom 14.1 (11.5-14.5) % Plt Count 316 (130-400) K/uL MPV 10.3 (7.4-10.4) fL Immature Gran % (Auto) 0.2 % Neut % (Auto) 72.7 % Lymph % (Auto) 18.7 % Scott % (Auto) 7.7 % Eos % (Auto) 0.7 % Baso % (Auto) 0.0 % Immature Gran # (Auto) 0.02 (0.00-0.02) K/uL Neut # (Auto) 7.06 H (1.4-6.5) K/uL Lymph # (Auto) 1.82 (1.2-3.4) K/uL Scott # (Auto) 0.75 H (0.11-0.59) K/uL Eos # (Auto) 0.07 (0-0.5) K/uL Baso # (Auto) 0.00 (0-0.2) K/uL Sodium 138 (136-145) mmol/L Potassium Cancelled (3.5-5.1) mmol/L Chloride 106 (98-107) mmol/L Carbon Dioxide 16 L (21-32) mmol/L Anion Gap 16.0 H (3-11) BUN 15 (7-18) mg/dl Creatinine 0.83 (0.6-1.2) mg/dl Est Cr Clr Drug Dosing 150.5 ml/min Est GFR ( Amer) 108.9 Est GFR (Non-Af Amer) 94.0 BUN/Creatinine Ratio 17.7 (10-20) Glucose 108 H (70-99) mg/dl Calcium 9.3 (8.5-10.1) mg/dl Total Bilirubin 1.2 H (0.2-1) mg/dl AST Cancelled (15-37) U/L ALT 282 H (12-78) U/L Alkaline Phosphatase 99 (45-117) U/L Troponin I (0-0.045) ng/ml Total Protein 7.6 (6.4-8.2) gm/dl Albumin 3.7 (3.4-5.0) gm/dl Globulin 3.9 (2.5-4.0) gm/dl Albumin/Globulin Ratio 0.9 (0.9-2) Lipase 10/07/18 10/07/18 10/07/18 Range/Units 18:12 18:12 19:44 WBC (4.8-10.8) K/uL RBC (4.2-5.4) M/uL Hgb (12.0-16.0) g/dL Hct (37-47) % MCV (80-100) fL MCH (25-34) pg MCHC (32-36) g/dL RDW Std Deviation (36.4-46.3) fL RDW Coeff of Rom (11.5-14.5) % Plt Count (130-400) K/uL MPV (7.4-10.4) fL Immature Gran % (Auto) % Neut % (Auto) % Lymph % (Auto) % Scott % (Auto) % Eos % (Auto) % Baso % (Auto) % Immature Gran # (Auto) (0.00-0.02) K/uL Neut # (Auto) (1.4-6.5) K/uL Lymph # (Auto) (1.2-3.4) K/uL Scott # (Auto) (0.11-0.59) K/uL Eos # (Auto) (0-0.5) K/uL Baso # (Auto) (0-0.2) K/uL Sodium Cancelled (136-145) mmol/L Potassium Cancelled (3.5-5.1) mmol/L Chloride Cancelled (98-107) mmol/L Carbon Dioxide Cancelled (21-32) mmol/L Anion Gap Cancelled (3-11) BUN Cancelled (7-18) mg/dl Creatinine Cancelled (0.6-1.2) mg/dl Est Cr Clr Drug Dosing Cancelled ml/min Est GFR ( Amer) Cancelled Est GFR (Non-Af Amer) Cancelled BUN/Creatinine Ratio Cancelled (10-20) Glucose Cancelled (70-99) mg/dl Calcium Cancelled (8.5-10.1) mg/dl Total Bilirubin (0.2-1) mg/dl AST (15-37) U/L ALT (12-78) U/L Alkaline Phosphatase (45-117) U/L Troponin I < 0.015 (0-0.045) ng/ml Total Protein (6.4-8.2) gm/dl Albumin (3.4-5.0) gm/dl Globulin (2.5-4.0) gm/dl Albumin/Globulin Ratio (0.9-2) Lipase Cancelled 10/07/18 10/07/18 Range/Units 19:44 19:44 WBC (4.8-10.8) K/uL RBC (4.2-5.4) M/uL Hgb (12.0-16.0) g/dL Hct (37-47) % MCV (80-100) fL MCH (25-34) pg MCHC (32-36) g/dL RDW Std Deviation (36.4-46.3) fL RDW Coeff of Rom (11.5-14.5) % Plt Count (130-400) K/uL MPV (7.4-10.4) fL Immature Gran % (Auto) % Neut % (Auto) % Lymph % (Auto) % Scott % (Auto) % Eos % (Auto) % Baso % (Auto) % Immature Gran # (Auto) (0.00-0.02) K/uL Neut # (Auto) (1.4-6.5) K/uL Lymph # (Auto) (1.2-3.4) K/uL Scott # (Auto) (0.11-0.59) K/uL Eos # (Auto) (0-0.5) K/uL Baso # (Auto) (0-0.2) K/uL Sodium 140 (136-145) mmol/L Potassium 4.0 (3.5-5.1) mmol/L Chloride 110 H (98-107) mmol/L Carbon Dioxide 19 L (21-32) mmol/L Anion Gap 12.0 H (3-11) BUN 12 (7-18) mg/dl Creatinine 0.74 (0.6-1.2) mg/dl Est Cr Clr Drug Dosing 168.8 ml/min Est GFR ( Amer) 125.1 Est GFR (Non-Af Amer) 108.0 BUN/Creatinine Ratio 16.6 (10-20) Glucose 87 (70-99) mg/dl Calcium 8.8 (8.5-10.1) mg/dl Total Bilirubin (0.2-1) mg/dl AST 96 H Cancelled (15-37) U/L ALT (12-78) U/L Alkaline Phosphatase (45-117) U/L Troponin I (0-0.045) ng/ml Total Protein (6.4-8.2) gm/dl Albumin (3.4-5.0) gm/dl Globulin (2.5-4.0) gm/dl Albumin/Globulin Ratio (0.9-2) Lipase 585 H Imaging Data Radiologist's Impression: Radiology results as stated below per my review and the radiologist's interpretation: Biliary ultrasound CLINICAL HISTORY: ruq abd pain history of gastric bypass COMPARISON STUDY: No previous studies for comparison. FINDINGS: The pancreas was nonvisualized due to overlying bowel gas shadowing. There are suspected hepatic steatosis. No focal masses are visualized. The gallbladder appears sonographically normal. There is no ductal dilatation. The common bile duct measures 5 mm. There is no right-sided hydronephrosis. IMPRESSION: 1. Nondiagnostic evaluation of the pancreas 2. Ultrasonographically normal gallbladder. No ductal dilatation 3. Suspected hepatic steatosis Electronically signed by: Gilmar Carr M.D. 10/07/2018 7:18 PM CHEST/ABDOMEN XRAY: 5 Views 4 Views of the Abdomen Non-obstructive gas pattern. 1 View of the Chest No focal infiltrate or pneumothorax. ECG Data Attestation: I personally reviewed and interpreted this ECG as follows: Indication: other (allergic reaction) Rate (beats per minute): 90 Rhythm: sinus rhythm Findings: + other (normal axis, J point elevation in the inferior ) Comparison ECG Date: from (09/25/18) Change: no significant change Blood Pressure Blood Pressure Findings: Elevated blood pressure Blood Pressure Disposition: further management by hospitalist STEPH Cain Patient is a 33-year-old female status post gastric bypass 2 weeks ago who presents the ER for a possible allergic reaction associate with some abdominal pain. She had diffuse hives throughout her entire body and was scratching. IV was established and blood work was obtained. Her abdominal exam was completely benign. She was given IV Benadryl, famotidine and steroids with resolution of the itching and hives. Labs were obtained and showed no significant leukocytosis or anemia. BMP with initially a CO2 of 16 and this was repeated CO2 trended up to 19 following fluids. T bili was elevated at 1.2 with an ALT of 280 and a slightly elevated AST as well. Troponin was negative. Lipase was elevated at 600. Do favor this is likely pancreatitis. Ultrasound shows no gallstones and a normal CBD. GI cocktail did assist with the reflux/GERD. Patient was given IV fluids. Discussed with GI and the hospitalist and patient will be observed for further workup. Favored obstruction series and examination is was not consistent with a SBO. Patient is still passing gas. She has no vomiting. Discussed with Nayeli [place] [facility] [place] regards to not performing a CT. She was aware and will update Dr. fields. Patient is resting comfortably and is completely asymptomatic. Impression & Plan Pancreatitis, Abdominal pain, Allergic reaction, Transaminitis : Pancreatitis Qualifiers: Chronicity: acute Pancreatitis type: unspecified pancreatitis type Acute pancreatitis complication: unspecified Qualified Code(s): K85.90 - Acute pancreatitis without necrosis or infection, unspecified Abdominal pain Qualifiers: Abdominal location: epigastric Qualified Code(s): R10.13 - Epigastric pain Allergic reaction Qualifiers: Encounter type: initial encounter Qualified Code(s): T78.40XA - Allergy, unspecified, initial encounter The scribe's documentation has been prepared under my direction and personally reviewed by me in its entirety. I confirm that the note above accurately reflects all work, treatment, procedures, and medical decision making performed by me.
[2018-10-07] MEDS ORDERED: PANTOprazole 40 MG in SYRINGE 0 ML IV STA (21:26)
--- NOTE | 2018-10-07 21:27 | History & Physical Report ---
Date of Service October 07, 2018 Assessment & Plan (1) Epigastric abdominal pain: (2) Ileus: (3) Transaminitis: (4) Elevated lipase: ALT 282, AST 96, T bili 1.2, Lipase 585 Patient recently with wedge liver biopsy revealing WARREN On 10/05 had outpatient labs which revealed a T bili of 1.6, direct bili 0.8, ALT 250, AST 95 Patient currently not having abdominal discomfort (do not feel CT abdomen warranted at this time) Gallbladder ultrasound within normal limit abd xray ? post op ileus vs sbo tx conservatively Clear liq diet this evening followed by NPO after midnight miralax 17g daily repeat KUB in am follow LFTS, lipase consult GI (5) H/O gastric bypass: POD #10 Carlton en Y, along with wedge liver bx by Dr Burton at [facility] continue bariatric diet incisions healing well follow LFTS Liver bx reveals WARREN Has f/u 10/10 with surgery (6) Esophagitis: s/p EGD 09/24/[address] Dobbins recommended PPI bid x 2 weeks along with carafate ( currently only taking omeprazole 20mg daily ) Place on IV PPI BID until further eval by GI (7) Allergic reaction: secondary to colace s/p IV methylprednisolone, po benadryl and ranitidine sx resolved, monitor (8) Morbid obesity: s/p bariatric surg continue bariatric diet (9) DVT prophylaxis: SCDS/TEDS ? egd vs procedure in a.m. will hold further chemical prophylaxis at this time Disposition: D/C to home when able Follow up: PCP Momo Calvo upon discharge, along with surgical Follow up Dr. Martinez robb 10/10/18 Pt was seen and examined in collaboration with Dr. Faye, please see addendum Starting 10/08/18 pt will be under the care of Dr. Francis History of Present Illness Chief Complaint: Allergic reaction; epigastric pain Primary Care Provider: Momo Calvo This is a 33 yr old F who is POD #10 Carlton en Y done at [facility] 09/27/[address] Burton who presents to [facility] ED secondary to allergic rxn after taking colace. She has been doing well post operatively. Weaned off Narcotics after POD #2. Has been moving her bowels up until 2 days ago. Took colace this afternoon for stool softener when she developed diffuse urticaria, sob and feeling of her, "throat closing." This prompted her presentation to ED. Sx resolved in ED after receiving IV methylprednisolone, ranitidine and benadryl. After reaction improved she developed epigastric abdominal discomfort along with a burning sensation, "up my esophagus and to my shoulder blades." She has hx of esophagitis, recently had EGD 09/[address] Dobbins revealing mild esophagitis. Recommended PPI bid x 14 days then daily along with carafate. She has continued PPI with omeprazole but no longer is taking carafate. In ED received maalox no relief. KUB/CXR performed which revealed mild post op ileus vs obs. Lastly noted to have a transaminitis along with elevated Lipase. Given findings she was recommended to be admitted for further observation. Currently she denies f/c/s, dizziness, lightheaded, chest pain, n/v/d, abdominal pain. She has been urinating with out difficulty. Per she has been ambulating well. Stopped lovenox injections 1 day ago. She has been tolerating bariatric diet. Doing high protein low carb, protein shakes, pureed food. Allergies Allergy/AdvReac Type Severity Reaction Status Date / Time docusate [From Colace] Allergy Intermediate Hives Verified 10/07/18 21:48 Home Medications Home Medications Medication Instructions Recorded Confirmed Type Xulane 1 patch TOPICAL DIRECTED 09/24/18 10/07/18 History cyanocobalamin (vitamin B-12) 1,000 mcg IM WK 09/24/18 10/07/18 History docusate sodium [Colace] 100 mg PO BID PRN 10/07/18 10/07/18 History levothyroxine 88 mcg PO DAILY 10/07/18 10/07/18 History omeprazole 20 mg PO DAILY 10/07/18 10/07/18 History Past Med/Surg History Medical History DVT prophylaxis Elevated lipase (Acute) History of retinoblastoma (Chronic) Epigastric abdominal pain Morbid obesity Esophagitis (Acute) Migraine (Chronic) Surgical History History of surgery (Chronic) hx of face reconstruction secondary to retinoblastoma H/O gastric bypass (Resolved) H/O colonoscopy Hx of esophagogastroduodenoscopy Hx of tonsillectomy Social History Preferred Language: Colombian Communication Ability: Effective Manager Finance Required: No Beliefs That Will Affect Care: None Current Living Situation: Spouse and Family Feels Safe at Home: Yes Safety Concerns: Feels Safe At This Time Smoking Status: Never smoker Hx Alcohol Use: No Hx Substance Use: No Review of Systems Review of Systems: All systems reviewed & are unremarkable except as noted in HPI & below Physical Exam Physical Exam: Gen: WD/WN, F, NAD, sitting up in bed, pleasant, conversing easily Head: Normocephalic, Atraumatic Eyes: Sclera normal, no conjunctival injection, PERRLA, EOMI ENT: Gross hearing intact, normal pharynx, mucous membranes moist Neck: supple, no adenopathy, No JVD, no bruit, Resp: Clear to auscultation b/l, no wheeze, rales, rhonchi. Normal insp/exp effort, no accessory muscle use CV: Regular rate, regular rhythm, no murmur, rub, gallop, or ectopy Abd: obse abd, +incisions x 4 CDI, +abdominal wall ecchymosis from SQ injections, + abd wall urticaria noted , +BS x 4, soft, mild epigastric tenderness, non distended, no rebound, guarding, rigidity Musculoskeletal: moves extremities active rom x 4, strength intact, good softball core molder strength Extremities: No edema bilaterally, obese LE Skin: warm, moist, +urticaria, petechial rash noted along anterior abdominal wall, negative turgor, cap refill < 2sec Neuro: Alert and oriented x 3, speech normal, good mood/affect, cran nerve 2-12 intact grossly : deferred Results & Data Vital Signs (Past 12 Hours) Vital Signs Temp Pulse Resp BP Pulse Ox 10/07/18 18:52 91 H 31 H 150/97 H 100 10/07/18 18:00 92 H 25 H 10/07/18 17:19 96 H 27 H 163/89 H 10/07/18 17:00 101 H 27 H 10/07/18 16:47 97 10/07/18 16:33 110 H 15 97 10/07/18 15:53 132 H 27 H 10/07/18 15:41 36.6 C 135 H 26 H 134/86 97 Laboratory Results Short CBC 10/07/18 10/07/18 10/07/18 Range/Units 16:32 16:32 18:12 WBC 9.72 (4.8-10.8) K/uL Hgb 14.2 (12.0-16.0) g/dL Hct 40.9 (37-47) % Plt Count 316 (130-400) K/uL AST Cancelled (15-37) U/L Lipase 10/07/18 10/07/18 10/07/18 Range/Units 19:44 19:44 19:44 WBC (4.8-10.8) K/uL Hgb (12.0-16.0) g/dL Hct (37-47) % Plt Count (130-400) K/uL AST 96 H Cancelled (15-37) U/L Lipase Cancelled BMP 10/07/18 10/07/18 10/07/18 16:32 18:12 18:12 Sodium 138 Cancelled Potassium Cancelled Cancelled Chloride 106 Cancelled Carbon Dioxide 16 L Cancelled BUN 15 Cancelled Creatinine 0.83 Cancelled Glucose 108 H Cancelled Calcium 9.3 Cancelled 10/07/18 19:44 Sodium 140 Potassium 4.0 Chloride 110 H Carbon Dioxide 19 L BUN 12 Creatinine 0.74 Glucose 87 Calcium 8.8 Cardiac Enzymes 10/07/18 Range/Units 18:12 Troponin I < 0.015 (0-0.045) ng/ml Liver Function 10/07/18 10/07/18 10/07/18 Range/Units 16:32 18:12 19:44 Total Bilirubin 1.2 H (0.2-1) mg/dl AST Cancelled 96 H (15-37) U/L ALT 282 H (12-78) U/L Alkaline Phosphatase 99 (45-117) U/L Albumin 3.7 (3.4-5.0) gm/dl 10/07/18 Range/Units 19:44 Total Bilirubin (0.2-1) mg/dl AST Cancelled (15-37) U/L ALT (12-78) U/L Alkaline Phosphatase (45-117) U/L Albumin (3.4-5.0) gm/dl Diagnostic Findings CXR/Abd Xray: IMPRESSION: 1. Nonspecific bowel gas pattern with prominent gas-filled small bowel loops and scattered air-fluid levels. While likely secondary to a postoperative ileus, a small bowel obstruction could appear similar. Clinical and radiographic follow- up is recommended. 2. No evidence of free air Gallbladder US: IMPRESSION: 1. Nondiagnostic evaluation of the pancreas 2. Ultrasonographically normal gallbladder. No ductal dilatation 3. Suspected hepatic steatosis Medications Administered Discontinued Medications Al Hydrox/Mg Hydrox/Simethicone () 1 dose PO ONE ONE Stop: 10/07/18 17:23 Last Admin: 10/07/18 18:29 Dose: 1 dose Documented by: [id number] Diphenhydramine HCl (Benadryl Capsule) 50 mg PO NOW STA Stop: 10/07/18 15:57 Last Admin: 10/07/18 16:44 Dose: 50 mg Documented by: [id number] Sodium Chloride (Nss 1000ml) 2,000 mls @ 999 mls/hr IV .Q2H1M TUAN Stop: 10/07/18 18:00 Last Infusion: 10/07/18 18:55 Dose: 0 mls/hr Documented by: [id number] Admin: 10/07/18 16:44 Dose: 999 mls/hr Documented by: [id number] Methylprednisolone (Solumedrol) 125 mg IV NOW STA Stop: 10/07/18 15:57 Last Admin: 10/07/18 16:44 Dose: 125 mg Documented by: [id number] Ranitidine HCl (Zantac) 150 mg PO NOW STA Stop: 10/07/18 15:57 Last Admin: 10/07/18 16:44 Dose: 150 mg Documented by: [id number] ECG Rate (beats per minute): 90 Rhythm: normal sinus Code Status & VTE Plan Code Status Full Code VTE Prophylaxis Plan VTE Prophylaxis will be ordered: Yes Supervising Physician Co-Signing Physician Notes Care coordinated with Nayeli Snow PA-C. Agree with above note. Patient seen and examined. Please refer to her notes for full details. Vital signs reviewed. Physical exam: General exam: Alert and oriented. Not in acute distress. CVS: S1 and S2 heard, regular rate and rhythm, no murmurs. RS: Clear to auscultation, no wheezing or crackles. ABD: Soft, bowel sounds present, no distention. 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 EXT: No edema, no erythema. Labs: Reviewed. Assessment and plan: Allergic reaction to colae resolved with tx in Er Mild transaminitis Was found to have WARREN on biposy recently while getting gastric bypass surgery follow repeat labs GI consult Metabolic acidosis non anion gap normal renal function Possibly starvation ketosis will monitor Other diagnosis and plan of care as per Nayeli Snow PA-C. Bigg donahue MD. (1) Allergic reaction Encounter type: initial encounter Qualified Code(s): T78.40XA - Allergy, unspecified, initial encounter
[2018-10-07] MEDS ORDERED: ACETAMINOPHEN 325 MG TAB PO PRN (22:15)
[2018-10-07] MEDS ORDERED: MAGNESIUM HYDROXIDE SUSP 30 ML UDC PO PRN (22:15)
[2018-10-07] MEDS ORDERED: ONDANSETRON INJ 2 MG/ML 2 ML VIAL IV PRN (22:15)
[2018-10-07] MEDS ORDERED: ALUMINUM/MAGNESIUM SUSP 30 ML UDC PO PRN (22:15)
[2018-10-07] MEDS: SODIUM CHLORIDE 0.9% 1000ML 1,000 ML IV SCH (22:23)
[2018-10-07] MEDS: POLYETHYLENE (MIRALAX) 17 GM PACK PO SCH (23:21)
[2018-10-08 05:45] LABS: Hematocrit (blood only) 37.9 % (37-47); Mean Corpuscular Hgb Conc 34.3 g/dL (32-36); Mean Corpuscular Volume 86.1 fL (80-100); Mean Platelet Volume 10.3 fL (7.4-10.4); Platelet Count 282 K/uL (130-400); RDW Coefficient of Variation 14.4 % (11.5-14.5); RDW Standard Deviation 44.5 fL (36.4-46.3); White Blood Count 6.17 K/uL (4.8-10.8)
[2018-10-08 06:13] LABS: Albumin Level 3.3 gm/dl (3.4-5.0); BUN Creatinine Ratio 14.1 (10-20); Calcium 8.9 mg/dl (8.5-10.1); Est GFR (Non-African American) 124.2; Potassium 4.4 mmol/L (3.5-5.1)
[2018-10-08 06:15] LABS: Albumin Globulin Ratio 0.8 (0.9-2); Bilirubin,Total 0.8 mg/dl (0.2-1); Globulin 3.9 gm/dl (2.5-4.0); Total Protein 7.2 gm/dl (6.4-8.2)
[2018-10-08] MEDS ORDERED: LEVOTHYROXINE SODIUM 88 MCG TABLET PO SCH (06:30)
[2018-10-08 08:24] LABS: HCO3 ABG 14 mmol/L (19-24); Oxygen Saturation ABG 98.4 % (90-95); PCO2 ABG 24 mmHg (35-46); PO2 ABG 114 mm/Hg (80-95); pH ABG 7.38 (7.35-7.45)
[2018-10-08 08:27] LABS: Allen Test Pos (Pos)
[2018-10-08] MEDS ORDERED: PANTOprazole 40 MG in SYRINGE 0 ML IV SCH (09:00)
--- NOTE | 2018-10-08 09:28 | XRay Report ---
KUB HISTORY: Abdominal distention. follow up ileus COMPARISON: Chest and abdominal series 10/07/2018. FINDINGS: The bowel gas pattern is unremarkable. There are no dilated loops of small bowel to suggest an obstruction. No renal calculi. No ureteral calculi. No pneumoperitoneum or pneumatosis. IMPRESSION: Unremarkable bowel gas pattern. No evidence for ileus or obstruction. Electronically signed by: Willie Frey M.D. 10/08/2018 9:26 AM
[2018-10-08] MEDS: POLYETHYLENE (MIRALAX) 17 GM PACK PO SCH (10:34)
[2018-10-08] MEDS: SODIUM CHLORIDE 0.9% 1000ML 1,000 ML IV SCH (10:35)
--- NOTE | 2018-10-08 11:33 | Gastrointestinal Consultation ---
Date of Consultation October 08, 2018 History of Present Illness Attending Physician: Vicky Francis MD\\ 33 yo female with h/o morbid obesity s/p hosp early September for GERD/abd pain, underwent EGD that showed mild esophagitis. She underwent RYGB on 09/27 with liver bx that showed NAFLD. She was doing well post-operatively, although LFT's on 10/05 showed transaminitis, with prior pre-op LFTs that were normal. She is now admitted with complaint of flushing, urticaria, throat tightness that began shortly after taking one tab Colace and lasting 1-2 hours. On presentation to ER, she reported nausea and GERD, and was noted to have transaminitis similar to labs on 10/05, as well as lipase that was 1.5 x ULN. GB uls showed CBD 5 mm. Her symptoms completely resolved with Benadryl and steroids. She has no complaints this am - LFT's stable o/n, lipase improving. Denies tylenol. On exam, she is pleasant and comfortable; she has finished her tray of clears. Abd is soft and NT. CV: RRR. Resp: CTA. Labs reviewed A/p: GERD - cont PPI. Increased transaminases, mildly increased lipase - Possibly from sludge. No further imaging needed given normal CBD on imaging and lack of symptoms. Ok for d/c, with f/u with Dr. nance next week - I have notified him of her hospitaliza tion. Allergies Allergy/AdvReac Type Severity Reaction Status Date / Time docusate [From Colace] Allergy Intermediate Hives Verified 10/07/18 21:48 Home Medications Home Medications Medication Instructions Recorded Confirmed Type Xulane 1 patch TOPICAL DIRECTED 09/24/18 10/07/18 History cyanocobalamin (vitamin B-12) 1,000 mcg IM WK 09/24/18 10/07/18 History docusate sodium [Colace] 100 mg PO BID PRN 10/07/18 10/07/18 History levothyroxine 88 mcg PO DAILY 10/07/18 10/07/18 History omeprazole 20 mg PO DAILY 10/07/18 10/07/18 History Patient History Medical History DVT prophylaxis Elevated lipase (Acute) History of retinoblastoma (Chronic) Epigastric abdominal pain Morbid obesity Esophagitis (Acute) Migraine (Chronic) Surgical History History of surgery (Chronic) hx of face reconstruction secondary to retinoblastoma H/O gastric bypass (Resolved) H/O colonoscopy Hx of esophagogastroduodenoscopy Hx of tonsillectomy Social History Preferred Language: Georgian Communication Ability: Effective Gift Basket Packer Required: No Beliefs That Will Affect Care: None Current Living Situation: Spouse and Family Feels Safe at Home: Yes Safety Concerns: Feels Safe At This Time Smoking Status: Never smoker Hx Alcohol Use: No Hx Substance Use: No Results & Data Vital Signs (Past 12 Hours) Vital Signs Temp Pulse Resp BP Pulse Ox 10/08/18 07:26 36.4 C L 69 16 126/81 96
--- NOTE | 2018-10-08 13:21 | Discharge Summary ---
Date of Service October 08, 2018 Admission HPI Per Admitting Provider This is a 33 yr old F who is POD #10 Carlton en Y done at [facility] [place] 09/27/[address] Burton who presents to [facility] ED secondary to allergic rxn after taking colace. She has been doing well post operatively. Weaned off Narcotics after POD #2. Has been moving her bowels up until 2 days ago. Took colace this afternoon for stool softener when she developed diffuse urticaria, sob and feeling of her, "throat closing." This prompted her presentation to ED. Sx resolved in ED after receiving IV methylprednisolone, ranitidine and benadryl. After reaction improved she developed epigastric abdominal discomfort along with a burning sensation, "up my esophagus and to my shoulder blades." She has hx of esophagitis, recently had EGD 09/[address] Dobbins revealing mild esophagitis. Recommended PPI bid x 14 days then daily along with carafate. She has continued PPI with omeprazole but no longer is taking carafate. In ED received maalox no relief. KUB/CXR performed which revealed mild post op ileus vs obs. Lastly noted to have a transaminitis along with elevated Lipase. Given findings she was recommended to be admitted for further observation. Currently she denies f/c/s, dizziness, lightheaded, chest pain, n/v/d, abdominal pain. She has been urinating with out difficulty. Per she has been ambulating well. Stopped lovenox injections 1 day ago. She has been tolerating bariatric diet. Doing high protein low carb, protein shakes, pureed food. Principal Diagnosis ALLERGIC REACTION TO COLACE Discharge Exam Constitutional + obese; no acute distress Eyes + anicteric sclerae ENMT external ear and nose normal, oropharynx normal Neck trachea midline, no thyromegaly Respiratory normal respiratory effort, lungs clear to auscultation Cardiovascular RRR, no murmur, no edema Gastrointestinal (Abdomen) Percussion/Palpation: abdomen soft; abdomen nontender Distended, recent surgical incision present in the lower abdomen, well-healed, no drainage, no erythema noted Musculoskeletal no cyanosis or clubbing, extremities motor strength 5/5 Skin no rashes, warm and dry + rash Neurologic PERRL, EOMI, accommodation nl, no face palsy, no dysarthria Psychiatric A+Ox3, euthymic affect Discharge Data Allergies Allergy/AdvReac Type Severity Reaction Status Date / Time docusate [From Colace] Allergy Intermediate Hives Verified 10/07/18 21:48 Consultations 10/07/18 19:44 ED Decision to Admit Stat 10/07/18 21:13 Consult Gastroenterology Routine Ordered Studies 10/07/18 17:44 US gallbladder Stat Hospital Course (1) Epigastric abdominal pain: (2) Ileus: (3) Transaminitis: (4) Elevated lipase: Presented with, rash, feeling of throat closing after taking Colace ALT 282, AST 96, T bili 1.2, Lipase 585 LFTs has improved, lipase level normalized, no complaint of abdominal pain nausea has resolved Patient recently with wedge liver biopsy revealing WARREN On 10/05 had outpatient labs which revealed a T bili of 1.6, direct bili 0.8, ALT 250, AST 95 Gallbladder ultrasound within normal limit Appreciate input from GI, no further testing needed, patient is a very presumed to her outpatient clear liquid bariatric diet, stable to be discharged home today (5) H/O gastric bypass: POD # 11 Carlton en Y, along with wedge liver bx by Dr Burton at [facility] [place] continue bariatric diet incisions healing well Has postop f/u scheduled 10/10 with surgery (6) Esophagitis: s/p EGD 09/24/[address] Dobbins recommended PPI bid x 2 weeks along with carafate ( currently only taking omeprazole 20mg daily ) No complaint of acid reflux, tolerating diet, evaluated by GI, no change in medication, patient to resume prior bariatric diet, stable to be discharged home (7) Allergic reaction: Developed a rash, feeling of throat closing in, severe itching after taking Colace s/p IV methylprednisolone, po benadryl and ranitidine in ER sx resolved, Patient has never taken Colace in the past, also concerned that she just started to take protein water shake, worried allergic reaction could be secondary to that as well Asked to avoid Colace and protein water shake No sign of allergic/hypersensitivity reaction, tolerating diet with no stridor no breathing problem, rash has resolved, stable to be discharged home (8) Morbid obesity: s/p bariatric surg continue bariatric diet (9) DVT prophylaxis: SCDS/TEDS Disposition: Stable to be discharged home today Follow up: PCP Momo Calvo upon discharge, along with surgical Follow up Dr. Burton 10/10/18 Total Time Total Time Spent Total Time Spent (In Minutes): Approximately 40 minutes Total Time Includes: Examination of the Patient, Discharge Planning, Medication Reconciliation and Communication With Other Providers Discharge Plan Discharge Items Patient Disposition: Home - Self-Care Reason For Visit: ALLERGIC REACTION, EPIGASTRIC PAIN Discharge Diagnosis: ALLERGIC REACTION TO COLACE Discharge Goals: Decrease discomfort Activity: Resume your previous activity Non-emergency contact: Primary Care Provider Call non-emergency contact if: you have any medication questions Follow-up/Referrals: Momo Calvo, PA-C [Primary Care Provider] - Diet: Clear liquid Addtl Provider Instructions: FOLLOW UP WITH SURGERY DR BURTON 10/10/18 SCHEDULED HOSPITAL FOLLOW UP WITH FAMILY PHYSICIAN IN A WEEK Prescriptions: Continued cyanocobalamin (vitamin B-12) 1,000 mcg/mL solution 1,000 mcg IM WK RF: 0 Xulane 150-35 mcg/24 hr patch weekly 1 patch topical DIRECTED RF: 0 levothyroxine 88 mcg tablet 88 mcg PO DAILY RF: 0 omeprazole 20 mg Tablet,Delayed Release (Dr/Ec) 20 mg PO DAILY RF: 0 Discontinued docusate sodium [Colace] 100 mg Capsule 100 mg PO BID PRN (Reason: Constipation) RF: 0 Stand-Alone Forms: [facility] Discharge Orders: Discharge Order (Routine); Ordered 10/08/18 Ordered By: Vicky Francis Admission Data Admit Date/Time: 10/07/18 21:13 Attending Provider: Vicky Francis Admit Provider: Bigg Faye Primary Care Provider: Momo Calvo Other Providers: Suma Crowley Rajendra P Service: Medical Other Interventions: Discharge Summary Assessment (RN) Last Done: 10/08/18 12:57 DC Date/Time DO NOT enter until pt leaves facility: 10/08/18 14:40
== END 2018-10-08 14:40 | disposition home or self-care (01) ==
LOC: 4E 15:36 → ED 15:36 → 4E 21:46